=== PATIENT | female | born 1945 | race Caucasian/White ===

== ENCOUNTER 2017-06-26 00:26 | Emergency (ER) | payer OTHER, MEDICARE ==
[2017-06-26 00:38] VITALS: BP 117/69; PULSE 82; TEMP 97.8; BMI 22.8
--- NOTE | 2017-06-26 00:47 | PDOC ---
History of Present Illness - General Chief Complaint: Pain Stated Complaint: ABD PAIN WITH BM Time Seen by Provider: 06/26/17 00:42 History Source: Patient Exam Limitations: No Limitations - History of Present Illness Initial Comments: 06/26/17 00:42 Painful bowel movement one hour ago, feels fine now. Timing/Duration: 1 hour Severity: moderate Modifying Factors: worse with: cold therapy, eating, immobilization, medication , movement, rest, other Associated Symptoms: denies: denies symptoms, chest pain, cough, diaphoresis, fever/chills, headaches, loss of appetite, malaise, nausea/vomiting, rash, seizure, shortness of breath, syncope, weakness, other Aspirin Received prior to arrival: Yes: no aspirin today Past History - Past Medical History Allergies/Adverse Reactions: Allergies Allergy/AdvReac Type Severity Reaction Status Date / Time No Known Allergies Allergy Verified 06/26/17 00:27 Home Medications: Ambulatory Orders Atorvastatin Ca [Lipitor] 20 mg PO DAILY 01/12/16 Lisinopril [Prinivil] 20 mg PO DAILY 01/12/16 Lamotrigine [Lamictal] 100 mg PO DAILY 07/08/16 Levothyroxine [Synthroid -] 100 mcg PO DAILY@0700 #30 tablet 07/09/16 Sertraline HCl [Zoloft] 100 mg PO DAILY 08/09/16 Albuterol Sulfate Inhaler - [Ventolin HFA Inhaler -] 1 - 2 inh PO QID #1 inhaler 08/10/16 Budesonide/Formeterol Fumarate [SYMBICORT 160/4.5mcg -] 2 puff IH BID #1 inhaler 08/10/16 Asthma: Yes COPD: Yes Diabetes: Yes HTN: Yes Hypercholesterolemia: Yes Psychiatric Problems: Yes (anxiety) Thyroid Disease: Yes (HYPO) - Surgical History Appendectomy: Yes - Immunization History Td Vaccination: Yes TDAP Vaccination: No Immunization Up to Date: No - Suicide/Smoking/Psychosocial Hx Smoking Status: Yes Smoking History: Current some day smoker Years of Tobacco Use: 20 Have you smoked in the past 12 months: Yes Number of Cigarettes Smoked Daily: 15 Information on smoking cessation initiated: Yes 'Breaking Loose' booklet given: 08/31/14 Hx Alcohol Use: No Drug/Substance Use Hx: No Substance Use Type: None Hx Substance Use Treatment: No Review of Systems - Review of Systems Able to Perform ROS?: Yes Is the patient limited Swedish proficient: Yes Constitutional: No: Symptoms Reported HEENTM: No: Symptoms Reported Respiratory: No: Symptoms reported Cardiac (ROS): No: Symptoms Reported ABD/GI: No: Symptoms Reported : No: Symptoms Reported Musculoskeletal: No: Symptoms Reported Integumentary: No: Symptoms Reported Neurological: No: Symptoms reported Psychiatric: No: Anxiety, Depression Endocrine: No: Symptoms Reported Hematologic/Lymphatic: No: Symptoms Reported All Other Systems: Reviewed and Negative *Physical Exam - Vital Signs Last Vital Signs Temp Pulse Resp BP Pulse Ox 97.8 F 82 18 117/69 99 06/26/17 00:33 06/26/17 00:33 06/26/17 00:33 06/26/17 00:33 06/26/17 00:33 - Physical Exam Comments: 06/26/17 00:44 VSS NAD General Appearance: Yes: Nourished, Appropriately Dressed, Apparent Distress HEENT: positive: EOMI, MARIZOL, Normal ENT Inspection Neck: positive: Tender, Trachea midline, Supple Respiratory/Chest: positive: Lungs Clear, Normal Breath Sounds Cardiovascular: positive: Regular Rhythm, Regular Rate, Murmur Gastrointestinal/Abdominal: positive: Normal Bowel Sounds, Flat, Soft Rectal Exam: positive: deferred Lymphatic: negative: Adenopathy, Tenderness Musculoskeletal: positive: Normal Inspection Extremity: positive: Normal Capillary Refill, Normal Inspection Integumentary: positive: Normal Color, Dry, Warm Neurologic: positive: tripe finisher II-XII NML intact, Fully Oriented, Alert, Normal Mood/ Affect *DC/Admit/Observation/Transfer Diagnosis at time of Disposition: Abdominal pain in female - Discharge Dispostion Disposition: HOME Condition at time of disposition: Good Admit: No - Patient Instructions Printed Discharge Instructions: DI for Abdominal Pain-Adult Additional Instructions: Return to us if worse or any problems
== END 2017-06-26 00:58 | disposition home or self-care (01) ==
LOC: FER 00:26
DX: R10.9 Unspecified abdominal pain (principal); J45.909 Unspecified asthma, uncomplicated; E11.9 Type 2 diabetes mellitus without complications; I10 Essential (primary) hypertension; E78.00 Pure hypercholesterolemia, unspecified; F41.9 Anxiety disorder, unspecified; E03.9 Hypothyroidism, unspecified; F17.210 Nicotine dependence, cigarettes, uncomplicated
CPT/HCPCS: 99282-25

== ENCOUNTER 2017-10-13 17:46 | Emergency (ER) | payer OTHER, MEDICARE ==
[2017-10-13 18:37] VITALS: BMI 22.8
--- NOTE | 2017-10-13 18:46 | PDOC ---
History of Present Illness - General History Source: Patient Exam Limitations: No Limitations - History of Present Illness Initial Comments: 10/13/17 18:56 The patient is a 71 year old female with a significant past medical history of anxiety, COPD, HTN, and HLD who presents to the ED with a cough. The patient reports she developed a cough around the fall of 2016. She states her cough started off being productive of darby foggy sputum. Patient reports her cough has now progressively worsened and is productive of a yellow-colored sputum. She also reports a nasal drip to the back of her throat and worsening nasal congestion associated with present symptoms. Patient states her baseline O2 stat is in the mid 80s. She states she has oxygen at home but it noncompliant. Denies fever or chills. Denies chest pain. Denies nausea, vomiting, or diarrhea. Denies any other symptoms. <Deja Rosales - Last Filed: 10/13/17 18:56> <Rosa Isela Childress - Last Filed: 10/14/17 12:00> - General Chief Complaint: Cold Symptoms Stated Complaint: cough Time Seen by Provider: 10/13/17 18:32 Past History <Deja Rosales - Last Filed: 10/13/17 18:56> - Past Medical History Asthma: Yes COPD: Yes (sometimes uses 02 at home) Diabetes: Yes HTN: Yes Hypercholesterolemia: Yes Psychiatric Problems: Yes (anxiety) Thyroid Disease: Yes (HYPO) - Surgical History Appendectomy: Yes - Immunization History Td Vaccination: Yes TDAP Vaccination: No Immunization Up to Date: No - Suicide/Smoking/Psychosocial Hx Smoking Status: Yes Smoking History: Unknown if ever smoked Years of Tobacco Use: 20 Have you smoked in the past 12 months: Yes Number of Cigarettes Smoked Daily: 15 'Breaking Loose' booklet given: 08/31/14 Hx Alcohol Use: No Drug/Substance Use Hx: No Substance Use Type: None Hx Substance Use Treatment: No <Rosa Isela hCildress - Last Filed: 10/14/17 12:00> - Past Medical History Allergies/Adverse Reactions: Allergies Allergy/AdvReac Type Severity Reaction Status Date / Time No Known Allergies Allergy Verified 06/26/17 00:27 Home Medications: Ambulatory Orders Atorvastatin Ca [Lipitor] 20 mg PO DAILY 01/12/16 Lisinopril [Prinivil] 20 mg PO DAILY 01/12/16 Lamotrigine [Lamictal] 100 mg PO DAILY 07/08/16 Levothyroxine [Synthroid -] 100 mcg PO DAILY@0700 #30 tablet 07/09/16 Sertraline HCl [Zoloft] 100 mg PO DAILY 08/09/16 Albuterol Sulfate Inhaler - [Ventolin HFA Inhaler -] 1 - 2 inh PO QID #1 inhaler 08/10/16 Budesonide/Formeterol Fumarate [SYMBICORT 160/4.5mcg -] 2 puff IH BID #1 inhaler 08/10/16 Albuterol 2.5/Ipratropium 0.5 [Duoneb -] 1 neb IH QID #24 vial.neb. 10/13/17 Azithromycin 250 mg PO DAILY #4 tablet 10/13/17 Prednisone [Deltasone] 40 mg PO DAILY #8 tablet 10/13/17 Review of Systems - Review of Systems Able to Perform ROS?: Yes Comments:: 10/13/17 18:57 GENERAL/CONSTITUTIONAL: No fever or chills. No weakness. HEAD, EYES, EARS, NOSE AND THROAT: + nasal drip/nasal congestion. No change in vision. No ear pain or discharge. No sore throat. CARDIOVASCULAR: No chest pain. RESPIRATORY: + cough No wheezing, or hemoptysis. GASTROINTESTINAL: No nausea, vomiting, diarrhea or constipation. GENITOURINARY: No dysuria, frequency, or change in urination. MUSCULOSKELETAL: No joint or muscle swelling or pain. No neck or back pain. SKIN: No rash NEUROLOGIC: No headache, vertigo, loss of consciousness, or change in strength/ sensation. ENDOCRINE: No increased thirst. No abnormal weight change. HEMATOLOGIC/LYMPHATIC: No anemia, easy bleeding, or history of blood clots. ALLERGIC/IMMUNOLOGIC: No hives or skin allergy. All Other Systems: Reviewed and Negative <Deja Rosales - Last Filed: 10/13/17 18:56> *Physical Exam - Vital Signs Last Vital Signs Temp Pulse Resp BP Pulse Ox 98.5 F 110 H 18 120/93 93 L 10/13/17 17:46 10/13/17 17:46 10/13/17 17:46 10/13/17 17:46 10/13/17 18:46 <Deja Rosales - Last Filed: 10/13/17 18:56> - Vital Signs Last Vital Signs Temp Pulse Resp BP Pulse Ox 98.5 F 110 H 18 120/93 93 L 10/13/17 17:46 10/13/17 17:46 10/13/17 17:46 10/13/17 17:46 10/13/17 18:46 - Physical Exam Comments: GENERAL: Awake, alert, and fully oriented, in no acute distress HEAD: No signs of trauma EYES: PERRLA, EOMI, sclera anicteric, conjunctiva clear ENT: Auricles normal inspection, hearing grossly normal, nares patent, oropharynx erythematous without exudates. Moist mucosa NECK: Normal ROM. No JVD or masses. +Mild anterior cervical LAD. LUNGS: Mildly dec air entry B/L, scattered exp wheezes. Speaking full sentences. HEART: Regular rate and rhythm, normal S1 and S2, no murmurs, rubs or gallops ABDOMEN: Soft, nontender, normoactive bowel sounds. No guarding, no rebound. No masses EXTREMITIES: Normal range of motion, no edema. No clubbing or cyanosis. No cords, erythema, or tenderness NEUROLOGICAL: Cranial nerves II through XII grossly intact. Normal speech, normal gait SKIN: Warm, Dry, normal turgor, no rashes or lesions noted. <Rosa Isela Childress - Last Filed: 10/14/17 12:00> Medical Decision Making - Medical Decision Making 10/13/17 18:53 Pt placed on O2 in ED and her O2Sat increased to 93-95. She chronically has O2Sat in mid-80s, recently has been worse with her coughing. Despite this, she is speaking full sentences, comfortable on O2. Will treat with steroids, nebs, and abx for bronchitis. If CXR negative and improving, may potentially DC home. <Rosa Isela Childress - Last Filed: 10/14/17 12:00> *DC/Admit/Observation/Transfer - Attestations Scribe Attestion: 10/13/17 18:57 Documentation prepared by Deja Rosales, acting as medical art therapist for Rosa Isela Childress MD <Deja Rosales - Last Filed: 10/13/17 18:56> <Rosa Isela Childress - Last Filed: 10/14/17 12:00> Diagnosis at time of Disposition: Bronchitis COPD (chronic obstructive pulmonary disease) Qualifiers: COPD type: emphysema Emphysema type: unspecified Qualified Code(s): J43.9 - Emphysema, unspecified - Discharge Dispostion Disposition: HOME Condition at time of disposition: Stable - Prescriptions Prescriptions: Albuterol 2.5/Ipratropium 0.5 [Duoneb -] 1 neb IH QID #24 vial.neb. Azithromycin 250 mg PO DAILY #4 tablet Prednisone [Deltasone] 40 mg PO DAILY #8 tablet - Patient Instructions Additional Instructions: Take your antibiotic 1 tablet a day for the next 4 days. Take prednisone 2 tablets a day for the next 4 days. Use your oxygen as needed. You can take a nebulizer treatment as often as 4 times a day. Keep your appointment with Dr. Diaz Return to the emergency department immediately with ANY new, persistent or worsening symptoms. Continue any medications as previously prescribed by your physician. You should follow up with your primary doctor as soon as possible regarding today's emergency department visit. . Please make sure your doctor reviews the results of your emergency evaluation. Thank you for coming to the Emergency Department today for your care. It was a pleasure to see you today. Please note that your evaluation is INCOMPLETE until you follow-up with your doctor.
[2017-10-13] MEDS ORDERED: predniSONE 20 MG TABLET (UD) PO ONE (18:51)
[2017-10-13] MEDS ORDERED: AZITHROMYCIN 500 MG TABLET PO ONE (18:51)
[2017-10-13] MEDS ORDERED: AZITHROMYCIN 250 MG TABLET ONE (19:15)
[2017-10-13] MEDS ORDERED: ALBUTEROL SO4 2.5/IPRATROPIUM 0.5 INH SOL 3 ML VIAL.NEB. NEB ONE ×2 (19:15→19:23)
[2017-10-13] MEDS ORDERED: predniSONE 20 MG TABLET (UD) ONE (19:16)
[2017-10-13] MEDS: ALBUTEROL SO4 2.5/IPRATROPIUM 0.5 INH SOL 3 ML VIAL.NEB. NEB SCH ×3 (19:20→19:36)
--- NOTE | 2017-10-13 19:27 | PDOC ---
*Physical Exam - Vital Signs Last Vital Signs Temp Pulse Resp BP Pulse Ox 98.5 F 110 H 18 120/93 93 L 10/13/17 17:46 10/13/17 17:46 10/13/17 17:46 10/13/17 17:46 10/13/17 18:46 ED Treatment Course - Medications Given in the ED: ED Medications Discontinued Medications Generic Name Dose Route Start Last Admin Trade Name Freq PRN Reason Stop Dose Admin Azithromycin 500 mg 10/13/17 18:51 10/13/17 19:19 Azithromycin PO 10/13/17 18:52 500 mg ONCE ONE Administration Prednisone 60 mg 10/13/17 18:51 10/13/17 19:19 Deltasone - PO 10/13/17 18:52 60 mg ONCE ONE Administration Progress Note - Progress Note Progress Note: Care of this patient was transferred to me from Dr. Childress at 1900 hrs. Patient is a 71-year-old female who came in complaining of acute exacerbation of her COPD and shortness of breath. Patient is on home oxygen for her COPD. But does not like to use it when she got here her O2 sats were 77% and when placed on her amount of oxygen that she is supposed to be on at home her sats rapidly improved to 93%. Patient had a chest x-ray that was read by me as no acute pathology no significant change from prior chest x-ray of July 2016. It does show flattening of the diaphragms consistent with COPD Patient is receiving some steroids and nebulizer treatments will reassess and reevaluate after completion of her medications and make decision to discharge. Patient prefers to be discharged home if at all possible Reevaluation 2000 hrs. Patient is feeling finished her medication feels much better looks better and wanted to go home. Patient needs prescriptions for her steroids and her nebulizers will send prescriptions to patient's pharmacy Assessment and plan: This is a 71-year-old female who comes in complaining of COPD exacerbation patient ran out of her medications for her nebulizer and the has not been using her oxygen at home. Patient given prednisone here and dual nebs with marked improvement in her symptoms. Patient will be given prescriptions and has an appointment with a rn med surg for next week. *DC/Admit/Observation/Transfer Diagnosis at time of Disposition: Bronchitis COPD (chronic obstructive pulmonary disease) Qualifiers: COPD type: emphysema Emphysema type: unspecified Qualified Code(s): J43.9 - Emphysema, unspecified - Discharge Dispostion Disposition: HOME Condition at time of disposition: Stable Admit: No - Referrals - Patient Instructions Additional Instructions: Take your antibiotic 1 tablet a day for the next 4 days. Take prednisone 2 tablets a day for the next 4 days. Use your oxygen as needed. You can take a nebulizer treatment as often as 4 times a day. Keep your appointment with Dr. Diaz Return to the emergency department immediately with ANY new, persistent or worsening symptoms. Continue any medications as previously prescribed by your physician. You should follow up with your primary doctor as soon as possible regarding today's emergency department visit. . Please make sure your doctor reviews the results of your emergency evaluation. Thank you for coming to the Emergency Department today for your care. It was a pleasure to see you today. Please note that your evaluation is INCOMPLETE until you follow-up with your doctor. - Post Discharge Activity
[2017-10-13 20:07] VITALS: BP 144/79; PULSE 82; TEMP 98.6
== END 2017-10-13 20:14 | disposition home or self-care (01) ==
LOC: FER 17:46
PROC: 3E0F7GC Introduction of Other Therapeutic Substance into Respiratory Tract, Via Natural or Artificial Opening (ICD-10-PCS; principal; 2017-10-13)
DX: J40 Bronchitis, not specified as acute or chronic (principal); J43.9 Emphysema, unspecified; I10 Essential (primary) hypertension; E78.5 Hyperlipidemia, unspecified; E11.9 Type 2 diabetes mellitus without complications; E03.9 Hypothyroidism, unspecified; F41.9 Anxiety disorder, unspecified
CPT/HCPCS: 71046-TC-FY; 94640; 99282-25

== ENCOUNTER 2020-02-16 10:07 | Emergency (ER) | payer OTHER, MEDICARE ==
[2020-02-16 10:29] VITALS: TEMP 98.6; BMI 28.3
[2020-02-16] MEDS ORDERED: methylPREDNISolone NA SUCC 125 MG/2 ML VIAL IVPB ONE (10:42)
[2020-02-16] MEDS ORDERED: ALBUTEROL SO4 HFA INHALER IH PRN (10:43)
[2020-02-16] MEDS ORDERED: methylPREDNISolone NA SUCC 125 MG/2 ML VIAL ONE (11:11)
[2020-02-16] MEDS ORDERED: ALBUTEROL SO4 HFA INHALER IH ONE ×2 (11:11→12:47)
[2020-02-16 11:25] LABS: BASO % 0.7 % (0-2.0); EOS % 6.2 % (0-4.5); HEMATOCRIT 40.8 % (32.4-45.2); HEMOGLOBIN 13.4 GM/dl (10.7-15.3); LYMPH % 16.3 % (8-40); MCH 28.6 pg (25.7-33.7); MCHC 32.9 g/dl (32.0-36.0); MEAN PLT VOLUME 7.8 fl (7.5-11.1); MONO % 10.1 % (3.8-10.2); NEUT % 66.7 % (42.8-82.8); PLATELET COUNT 219 K/MM3 (134-434); RDW 14.2 % (11.6-15.6); WHITE BLOOD COUNT 5.8 K/mm3 (4.0-10.8)
[2020-02-16 11:31] LABS: ACTIVATED PTT 35.4 SECONDS (25.2-36.5)
[2020-02-16 11:36] LABS: ALBUMIN 4.2 g/dl (3.4-5.0); ALK PHOS 70 U/L (45-117); ANION GAP 7 MMOL/L (8-16); BILIRUBIN,TOTAL 0.6 mg/dl (0.2-1); CALCIUM 8.7 mg/dl (8.5-10); CHLORIDE 97 mmol/L (98-107); CO2 35 mmol/L (21-32); CREATININE 0.7 mg/dl (0.55-1.3); GLUCOSE,RANDOM 99 mg/dl (74-106); LDH 198 U/L (84-246); POTASSIUM 4.5 mmol/L (3.5-5.1); PROTHROMBIN TIME (PATIENT) 11.2 SEC (10.2-13.0); SGOT/AST 35 U/L (15-37); SGPT/ALT 26 U/L (13-61); SODIUM 139 mmol/L (136-145); TOT PROT 6.8 g/dl (6.4-8.2)
[2020-02-16 11:40] LABS: BILIRUBIN,DIRECT < 0.2 mg/dL (0.0-0.2)
[2020-02-16] MEDS ORDERED: ALBUTEROL SO4 2.5/IPRATROPIUM 0.5 INH SOL 3 ML VIAL.NEB. NEB ONE ×4 (12:47→13:39)
[2020-02-16 16:22] VITALS: BP 127/86; PULSE 86
[2020-02-16 17:00] LABS: EPITHELIAL CELLS FEW /hpf
== END 2020-02-16 17:25 | disposition home or self-care (01) ==
LOC: FER 10:07
PROC: 3E033GC Introduction of Other Therapeutic Substance into Peripheral Vein, Percutaneous Approach (ICD-10-PCS; principal; 2020-02-16)
PROC: 3E0F7GC Introduction of Other Therapeutic Substance into Respiratory Tract, Via Natural or Artificial Opening (ICD-10-PCS; principal; 2020-02-16)
DX: J44.1 Chronic obstructive pulmonary disease with (acute) exacerbation (principal)
CPT/HCPCS: 36415; 71045-TC-FY; 80053; 81003; 81015; 82248; 82550; 82553; 82728; 83605; 83615; 84484; 85025; 85379; 85610; 85730; 86140; 87040; 87086; 93005; 94640; 96374; 99285-25; U0003

== ENCOUNTER 2020-04-20 05:29 | Inpatient (IN) | payer OTHER, MEDICARE ==
[2020-04-20] MEDS ORDERED: methylPREDNISolone NA SUCC 125 MG/2 ML VIAL IVPUSH ONE (05:58)
[2020-04-20] MEDS ORDERED: ALBUTEROL SO4 2.5/IPRATROPIUM 0.5 INH SOL 3 ML VIAL.NEB. NEB ONE ×5 (05:58→08:36)
--- NOTE | 2020-04-20 05:58 | PDOC ---
History of Present Illness - General Chief Complaint: Shortness of Breath Stated Complaint: SOB History Source: Patient Exam Limitations: Dementia - History of Present Illness Initial Comments: 04/20/20 06:35 74 y female, COPD, home O2, presents with increasing dyspnea x several days, worse last night. O2 sat at home off O2 in the 60s Is this a multiple visit Asthma Patient?: No Timing/Duration: 1 week Severity: moderate Modifying Factors: worse with: medication Associated Symptoms: reports: shortness of breath, weakness. denies: chest pain, cough, fever/chills Aspirin Received prior to arrival: Yes: no aspirin today Past History - Medical History Allergies/Adverse Reactions: Allergies Allergy/AdvReac Type Severity Reaction Status Date / Time No Known Allergies Allergy Verified 04/20/20 05:30 Home Medications: Ambulatory Orders Atorvastatin Ca [Lipitor] 40 mg PO DAILY 01/12/16 Lisinopril [Prinivil] 40 mg PO DAILY 01/12/16 Lamotrigine [Lamictal] 100 mg PO BID 07/08/16 Sertraline HCl [Zoloft] 200 mg PO DAILY 08/09/16 Albuterol Sulfate Inhaler - [Ventolin HFA Inhaler -] 1 - 2 inh PO QID #1 inhaler 02/16/20 Gabapentin [Neurontin] 100 mg PO BID 04/20/20 Levothyroxine [Synthroid -] 125 mcg PO DAILY@0700 04/20/20 Memantine HCl/Donepezil HCl [Namzaric 28 mg-10 mg Capsule] 1 each PO DAILY 04/20/20 Mirtazapine 15 mg PO HS 04/20/20 Anemia: No Asthma: Yes Cancer: Yes (LEFT LUNG CA 2017) Cardiac Disorders: No CVA: No COPD: Yes (uses 02 at home 2L) CHF: No DVT: No Dementia: Yes Diabetes: Yes Dialysis: No GI Disorders: No Disorders: No HTN: Yes Hypercholesterolemia: Yes Kidney Stones: No Liver Disease: No Psychiatric Problems: Yes (anxiety) Seizures: No Thyroid Disease: Yes (HYPO) Lung CA: Yes - Surgical History Abdominal Surgery: Yes Appendectomy: Yes Cardiac Surgery: No Cholecystectomy: No Gastric Stapling: No GI Surgery: No Lung Surgery: Yes (LEFT PARTIAL LOBECTOMY) Neurologic Surgery: No - Reproductive History Is Patient Now?: No - Immunization History Td Vaccination: Yes TDAP Vaccination: No Immunization Up to Date: No - Psycho-Social/Smoking History Smoking Status: Yes Smoking History: Unknown if ever smoked Years of Tobacco Use: 20 Have you smoked in the past 12 months: Yes Number of Cigarettes Smoked Daily: 15 If you are a former smoker, when did you quit?: 2018 'Breaking Loose' booklet given: 08/31/14 - Substance Abuse Hx (Audit-C & DAST Scrn) How often the patient has a drink containing alcohol: Never Score: In Men: 4 or > Positive; In Women: 3 or > Positive: 0 Screen Result (Pos requires Nsg. Audit-10AR): Negative In the last yr the pt used illegal drug/Rx for NonMed reason: No Score: Yes response is considered Positive: 0 Screen Result (Positive result requires Nsg. DAST-10): Negative Review of Systems - Review of Systems All Other Systems: Reviewed and Negative *Physical Exam - Vital Signs Last Vital Signs Temp Pulse Resp BP Pulse Ox 98.4 F 105 H 30 H 157/68 85 L 04/20/20 05:30 04/20/20 05:30 04/20/20 05:30 04/20/20 05:30 04/20/20 05:42 - Physical Exam General Appearance: Yes: Nourished, Appropriately Dressed HEENT: positive: Normal Voice. negative: Scleral Icterus (R), Scleral Icterus (L) Neck: negative: Lymphadenopathy (R), Lymphadenopathy (L) Respiratory/Chest: positive: Wheezing. negative: Respiratory Distress Cardiovascular: positive: Regular Rhythm Gastrointestinal/Abdominal: negative: Tender Lymphatic: negative: Adenopathy Musculoskeletal: positive: Normal Inspection Extremity: negative: Pedal Edema Integumentary: positive: Normal Color Neurologic: positive: Motor Strength 5/5 Heart Score/ECG Review - ECG Impressions Comment:: 04/20/20 06:38 sinus at 106, nl axis, nl intervals, no acute ischemic findings Medical Decision Making - Medical Decision Making 04/20/20 06:38 copd/ asthma with acute exacerbation cxr, labs ordered EKG non-contributory treat asthma exacerbation with duonebs, steroids, and O2 will probably need admission Discharge - Discharge Information Problems reviewed: Yes Clinical Impression/Diagnosis: COPD exacerbation - Follow up/Referral - Patient Discharge Instructions - Post Discharge Activity
[2020-04-20] MEDS ORDERED: methylPREDNISolone NA SUCC 125 MG/2 ML VIAL ONE (06:01)
--- NOTE | 2020-04-20 08:11 | PDOC ---
*Physical Exam - Vital Signs Last Vital Signs Temp Pulse Resp BP Pulse Ox 98.4 F 96 H 24 H 113/86 95 04/20/20 05:30 04/20/20 06:39 04/20/20 06:39 04/20/20 06:39 04/20/20 06:39 - Physical Exam 04/20/20 08:10 awake but sleepy, lungs decreased breath sound bilat, poor air entry. mild increased effort. faint end exp wheeze. heart reg tachycardia. no mrg abd soft nt ext wwp. no edema. no calf tenderness. <Joslyn Holcomb - Last Filed: 04/20/20 10:40> - Vital Signs Last Vital Signs Temp Pulse Resp BP Pulse Ox 98.2 F 80 20 122/77 100 04/20/20 20:44 04/20/20 20:44 04/20/20 20:44 04/20/20 20:44 04/20/20 20:44 <Monique Xiong - Last Filed: 04/20/20 21:12> ED Treatment Course - LABORATORY CBC & Chemistry Diagram: 04/20/20 06:01 04/20/20 06:01 - Medications Given in the ED: ED Medications Discontinued Medications Generic Name Dose Route Start Last Admin Trade Name Freq PRN Reason Stop Dose Admin Albuterol/Ipratropium 1 amp 04/20/20 05:58 04/20/20 06:22 Duoneb - NEB 04/20/20 05:59 1 amp ONCE ONE Administration Methylprednisolone Sodium Succinate 125 mg 04/20/20 05:58 04/20/20 06:22 Solu-Medrol - IVPUSH 04/20/20 05:59 125 mg ONCE ONE Administration <Joslyn Holcomb - Last Filed: 04/20/20 10:40> - LABORATORY CBC & Chemistry Diagram: 04/20/20 06:01 04/20/20 06:01 - ADDITIONAL ORDERS Additional order review: Laboratory Results 04/20/20 04/20/20 04/20/20 13:00 10:27 06:01 Anticoagulation Therapy No Result Required. No Result Required. Puncture Site No Result Required. No Result Required. Patient Temperature No Result Required. No Result Required. ABG pH 7.298 L 7.284 L ABG pCO2 65.80 H 70.10 H* ABG pO2 134.4 H 197.8 H ABG HCO3 31.5 H 32.5 H ABG O2 Sat (Measured) 98.3 H 99.2 H ABG O2 Content No Result Required. No Result Required. ABG Base Excess 2.6 H 3.6 H Rasheed Test No Result Required. No Result Required. VBG pH POC VBG pCO2 POC VBG pO2 VBG HCO3 VBG O2 Sat (Cherelle) VBG Base Excess Patient On Oxygen No Result Required. No Result Required. O2 Delivery Device No Result Required. No Result Required. Oxygen Flow Rate No Result Required. No Result Required. Vent Mode No Result Required. No Result Required. Vent Rate No Result Required. No Result Required. Mechanical Rate No Result Required. No Result Required. PEEP No Result Required. No Result Required. Pressure Support Vent No Result Required. No Result Required. Sodium 138 Potassium 4.5 Chloride 96 L Carbon Dioxide 32 Anion Gap 10 BUN 27.0 H Creatinine 0.7 Est GFR (CKD-EPI)AfAm 100.32 Est GFR (CKD-EPI)NonAf 86.56 Random Glucose 123 H Calcium 8.9 Total Bilirubin 0.4 AST 38 H ALT 26 Alkaline Phosphatase 93 Troponin I Total Protein 6.8 Albumin 4.1 04/20/20 04/20/20 06:01 06:00 Anticoagulation Therapy Puncture Site Patient Temperature ABG pH ABG pCO2 ABG pO2 ABG HCO3 ABG O2 Sat (Measured) ABG O2 Content ABG Base Excess Rasheed Test VBG pH 7.231 L POC VBG pCO2 85.2 H* POC VBG pO2 86.6 H VBG HCO3 35.0 H VBG O2 Sat (Cherelle) 94.3 H VBG Base Excess 4.5 H Patient On Oxygen O2 Delivery Device Oxygen Flow Rate Vent Mode Vent Rate Mechanical Rate PEEP Pressure Support Vent Sodium Potassium Chloride Carbon Dioxide Anion Gap BUN Creatinine Est GFR (CKD-EPI)AfAm Est GFR (CKD-EPI)NonAf Random Glucose Calcium Total Bilirubin AST ALT Alkaline Phosphatase Troponin I < 0.03 Total Protein Albumin 04/20/20 06:01 RBC 4.33 MCV 90.7 MCHC 32.8 RDW 15.1 MPV 8.8 Neutrophils % 66.2 Lymphocytes % 16.2 Monocytes % 12.6 H Eosinophils % 4.4 Basophils % 0.6 - Medications Given in the ED: ED Medications Discontinued Medications Generic Name Dose Route Start Last Admin Trade Name Freq PRN Reason Stop Dose Admin Albuterol/Ipratropium 1 amp 04/20/20 05:58 04/20/20 06:22 Duoneb - NEB 04/20/20 05:59 1 amp ONCE ONE Administration Albuterol/Ipratropium 1 amp 04/20/20 08:27 04/20/20 08:32 Duoneb - NEB 04/20/20 08:28 1 amp ONCE ONE Administration Methylprednisolone Sodium Succinate 125 mg 04/20/20 05:58 04/20/20 06:22 Solu-Medrol - IVPUSH 04/20/20 05:59 125 mg ONCE ONE Administration Sodium Chloride 1,000 ml 04/20/20 13:34 04/20/20 13:35 Normal Saline - IV 04/20/20 13:35 1,000 ml ONCE ONE Administration <Monique Xiong - Last Filed: 04/20/20 21:12> Medical Decision Making - Medical Decision Making 04/20/20 08:07 74-year-old female history of hypertension hyperlipidemia hypothyroid and COPD requiring home O2 here with worsening shortness of breath and cough for few days. Patient has been complaining of dyspnea on exertion when EMS arrived patient was noted to be 60s O2 sat off of oxygen. She does wear 2 L nasal cannula at home patient has a home health aide she does see a traffic superintendent at [facility] and her primary care doctor is Dr. Benjamin at [facility] prior to my arrival patient was seen by the overnight staff was given nebs steroids evaluate the chest x-ray and basic labs. x-ray was negative for acute pathology patient did show some improvement on my initial evaluation was sleeping with an O2 sat of 100% shortly thereafter she did become more dyspneic with decreased breath sounds will be placed on a second nebulizer oxygen was increased to 3 L is now satting 95%. Will attempt to keep sats above 92% will admit the patient to hospitalist 04/20/20 08:12 04/20/20 10:40 pt with increased co2 on blood gas, venous. mild resp acidosis. placed on BIPAP. abg sent and pending. evaluated by Wade Mariscal, will admit to [facility]. <Joslyn Holcomb - Last Filed: 04/20/20 10:40> Discharge - Discharge Information Problems reviewed: Yes - Admission Yes <Joslyn Holcomb - Last Filed: 04/20/20 10:40> - Admission Yes <Monique iXong - Last Filed: 04/20/20 21:12> - Discharge Information Clinical Impression/Diagnosis: COPD exacerbation
[2020-04-20 09:09] LABS: BASO % 0.6 % (0-2.0); EOS % 4.4 % (0-4.5); HEMATOCRIT 39.3 % (32.4-45.2); HEMOGLOBIN 12.9 GM/dl (10.7-15.3); LYMPH % 16.2 % (8-40); MCH 29.7 pg (25.7-33.7); MCHC 32.8 g/dl (32.0-36.0); MEAN CELL VOLUME 90.7 fl (80-96); MEAN PLT VOLUME 8.8 fl (7.5-11.1); MONO % 12.6 % (3.8-10.2); NEUT % 66.2 % (42.8-82.8); PLATELET COUNT 202 K/MM3 (134-434); RBC 4.33 M/mm3 (3.60-5.2); RDW 15.1 % (11.6-15.6); WHITE BLOOD COUNT 6.7 K/mm3 (4.0-10.8)
[2020-04-20 09:10] LABS: ALBUMIN 4.1 g/dl (3.4-5.0); BILIRUBIN,TOTAL 0.4 mg/dl (0.2-1); CALCIUM 8.9 mg/dl (8.5-10); CREATININE 0.7 mg/dl (0.55-1.3); POTASSIUM 4.5 mmol/L (3.5-5.1); TOT PROT 6.8 g/dl (6.4-8.2)
--- NOTE | 2020-04-20 09:15 | HP ---
CHIEF COMPLAINT: Dyspnea PCP: HISTORY OF PRESENT ILLNESS: This is a 74 year-old female with a history of HTN, HLD, COPD with multiple admissions, hypothyroidism, and anxiety who presented to the ED today with worsening SOB, nonproductive cough, and wheezing. The patient is lethargic on my evaluation; only opening eyes with vigorous physical stimulation and only providing one-word answers to simple questions. ER course was notable for: (1) Venous pH 7.2, PCO2 85 (2) CXR: no acute pathology (3) Treated with methylprednisolone 125mg IVP, DuoNeb x 2 Recent Travel: No PAST MEDICAL HISTORY: Hypertension Hyperlipidemia COPD Hypothyroidism Anxiety PAST SURGICAL HISTORY: Back surgery for scoliosis Appendectomy Tonsillectomy Social History: Smoking: Quit "a few months ago" Alcohol: None Drugs: None Allergies NKDA HOME MEDICATIONS: Home Medications Medication Instructions Recorded Atorvastatin Ca [Lipitor] 40 mg PO DAILY 01/12/16 Lisinopril [Prinivil] 40 mg PO DAILY 01/12/16 Lamotrigine [Lamictal] 100 mg PO BID 07/08/16 Sertraline HCl [Zoloft] 200 mg PO DAILY 08/09/16 Albuterol Sulfate Inhaler - 1 - 2 inh PO QID #1 inhaler 02/16/20 [Ventolin HFA Inhaler -] Gabapentin [Neurontin] 100 mg PO BID 04/20/20 Levothyroxine [Synthroid -] 125 mcg PO DAILY@0700 04/20/20 Memantine HCl/Donepezil HCl 1 each PO DAILY 04/20/20 [Namzaric 28 mg-10 mg Capsule] Mirtazapine 15 mg PO HS 04/20/20 REVIEW OF SYSTEMS Limited by patient condition. Denies fevers, chest pain. PHYSICAL EXAMINATION Vital Signs - 24 hr 04/20/20 04/20/20 04/20/20 05:30 05:42 05:54 Temperature 98.4 F Pulse Rate 105 H 107 H Pulse Rate [ Apical] Respiratory 30 H Rate Blood Pressure 157/68 Blood Pressure [Left Arm] O2 Sat by Pulse 85 L 85 L 94 L Oximetry (%) 04/20/20 04/20/20 06:39 08:00 Temperature Pulse Rate Pulse Rate [ 96 H 110 H Apical] Respiratory 24 H 20 Rate Blood Pressure Blood Pressure 113/86 144/69 [Left Arm] O2 Sat by Pulse 95 92 L Oximetry (%) GENERAL: Lethargic, responsive to vigorous stimulation, oriented x 3 when aroused. HEAD: Normal with no signs of trauma. EYES: Pupils equal, round and reactive to light, extraocular movements intact, sclera anicteric, conjunctiva clear. No lid lag. EARS, NOSE, THROAT: Ears normal, nares patent, oropharynx clear without exudates. Moist mucous membranes. NECK: Normal range of motion, supple without lymphadenopathy, JVD, or masses. LUNGS: Labored breathing with accessory muscle use. HEART: Regular rate and rhythm, normal S1 and S2 without murmur, rub or gallop. ABDOMEN: Soft, nontender, not distended, normoactive bowel sounds, no guarding, no rebound, no masses. No hepatomegaly or splenomegaly. MUSCULOSKELETAL: Normal range of motion at all joints. No bony deformities or tenderness. No CVA tenderness. UPPER EXTREMITIES: 2+ pulses, warm, well-perfused. No cyanosis. No clubbing. No peripheral edema. LOWER EXTREMITIES: 2+ pulses, warm, well-perfused. No calf tenderness. No peripheral edema. NEUROLOGICAL: Cranial nerves II-XII intact. Normal speech. Normal gait. PSYCHIATRIC: Cooperative. Good eye contact. Appropriate mood and affect. SKIN: Warm, dry, normal turgor, no rashes or lesions noted, normal capillary refill. Laboratory Results - last 24 hr 04/20/20 04/20/20 06:01 06:01 WBC 6.7 RBC 4.33 Hgb 12.9 Hct 39.3 MCV 90.7 MCH 29.7 MCHC 32.8 RDW 15.1 Plt Count 202 MPV 8.8 Absolute Neuts (auto) 4.5 Neutrophils % 66.2 Lymphocytes % 16.2 Monocytes % 12.6 H Eosinophils % 4.4 Basophils % 0.6 Sodium 138 Potassium 4.5 Chloride 96 L Carbon Dioxide 32 Anion Gap 10 BUN 27.0 H Creatinine 0.7 Est GFR (CKD-EPI)AfAm 100.32 Est GFR (CKD-EPI)NonAf 86.56 Random Glucose 123 H Calcium 8.9 Total Bilirubin 0.4 AST 38 H ALT 26 Alkaline Phosphatase 93 Total Protein 6.8 Albumin 4.1 ASSESSMENT/PLAN: 74-year-old female with COPD exacerbation. Family Medical History Family History: As Documented Problem List - Problem (1) COPD exacerbation Assessment/Plan: -Start NIPPV now given mental status -Pre- NIPPV ABG sent -SoluMedrol 60mg IVP bid -DuoNeb q6h while awake -Azithromycin 500mg PO daily (change to IV if mental status does not improve) -Pulm consult requested -May need transfer to [facility] (pending ABG, reassessment of mental status on NIPPV) ABG on 4L NC: pH 7.2, PCO2 70, PaO2 198 Code(s): J44.1 - CHRONIC OBSTRUCTIVE PULMONARY DISEASE W (ACUTE) EXACERBATION (2) Acute hypercapnic respiratory failure Assessment/Plan: -As above Code(s): J96.02 - ACUTE RESPIRATORY FAILURE WITH HYPERCAPNIA (3) Anxiety Assessment/Plan: -Continue home lamictal, sertraline, gabapentin when more alert Code(s): F41.9 - ANXIETY DISORDER, UNSPECIFIED (4) Hypothyroidism Assessment/Plan: -Continue home levothyroxine Code(s): E03.9 - HYPOTHYROIDISM, UNSPECIFIED (5) HTN (hypertension) Assessment/Plan: -At goal -Continue home lisinopril Code(s): I10 - ESSENTIAL (PRIMARY) HYPERTENSION (6) HLD (hyperlipidemia) Assessment/Plan: -Continue home atorvastatin Code(s): E78.5 - HYPERLIPIDEMIA, UNSPECIFIED (7) DVT prophylaxis Assessment/Plan: -Moderate risk -Lovenox 40mg sq daily Patient re-evaluated and is still sleepy/lethargic, now gives slightly better verbal responses when aroused. WOB slightly improved. Second ABG sent on NIPPV 10/5 40%. pH and PaCO2 remain relatively unchanged at 7.29 and 65. In addition, patient became hypotensive in ED to 80s systolic, which improved with fluid resuscitation. After discussion with ED attending, will transfer to [facility] for higher level of monitoring. Code(s): Z29.9 - ENCOUNTER FOR PROPHYLACTIC MEASURES, UNSPECIFIED Visit type - Medication Review Med list reviewed for High Risk Meds patients 65 and older: Yes - Emergency Visit Emergency Visit: Yes Care time: The patient presented to the Emergency Department on the above date and was hospitalized for further evaluation of their emergent condition. - New Patient This patient is new to me today: Yes Date on this admission: 04/20/20 - Critical Care Critical Care patient: Yes Total Critical Care Time (in minutes): 30 Critical Care Statement: The care of this patient involved high complexity decision making to prevent further life threatening deterioration of the patient's condition and/or to evaluate & treat vital organ system(s) failure or risk of failure.
[2020-04-20] MEDS ORDERED: ACETAMINOPHEN 325 MG TABLET (FP) PO PRN (09:16)
[2020-04-20 09:20] LABS: VENOUS BASE EXCESS 4.5 mmol/L (-2-2); VENOUS O2 SATURATION 94.3 % (70-80); VENOUS PH 7.231 (7.310-7.410)
[2020-04-20 09:25] LABS: VENOUS PCO2 85.2 mmHg (38-52)
[2020-04-20] MEDS ORDERED: AZITHROMYCIN 250 MG TABLET PO SCH (10:00)
[2020-04-20] MEDS ORDERED: PATIENT'S OWN MEDICATION (NON-FORMULARY) (Memantine Hcl/Donepezil Hcl [Namzaric 28 Mg-10 M PO SCH (10:00)
--- NOTE | 2020-04-20 10:28 | EKG ---
Test Reason : Blood Pressure : / mmHG Vent. Rate : 100 BPM Atrial Rate : 100 BPM P-R Int : 192 ms QRS Dur : 090 ms QT Int : 338 ms P-R-T Axes : 079 081 072 degrees QTc Int : 436 ms SINUS RHYTHM WITH PREMATURE ATRIAL COMPLEXES RIGHT ATRIAL ENLARGEMENT BORDERLINE ECG WHEN COMPARED WITH ECG OF 16-FEB-2020 10:21, NO SIGNIFICANT CHANGE WAS FOUND Confirmed by MD Steven, Agusto ([id number]) on 04/20/2020 10:27:51 AM Referred By: JUAN SIEGEL Confirmed By:Agusto Harris MD
[2020-04-20 11:14] LABS: ARTERIAL BLD GAS O2 SATURATION 99.2 mmHg (95-98); ARTERIAL BLOOD GAS BASE EXCESS 3.6 mmol/L (-2-2); ARTERIAL BLOOD GAS PO2 197.8 mmHg (80-100); ARTERIAL BLOOD GAS pH 7.284 (7.350-7.450)
[2020-04-20] MEDS ORDERED: SODIUM CHLORIDE 0.9% 1000 ML INFUS.BAG IV ONE (13:34)
[2020-04-20] MEDS: ALBUTEROL SO4 2.5/IPRATROPIUM 0.5 INH SOL 3 ML VIAL.NEB. NEB SCH ×2 (13:58→23:00)
[2020-04-20 14:22] LABS: ARTERIAL BLD GAS O2 SATURATION 98.3 mmHg (95-98); ARTERIAL BLOOD GAS BASE EXCESS 2.6 mmol/L (-2-2); ARTERIAL BLOOD GAS PO2 134.4 mmHg (80-100); ARTERIAL BLOOD GAS pH 7.298 (7.350-7.450)
[2020-04-20] MEDS ORDERED: AZITHROMYCIN 500 MG VIAL IVPB ONE (15:56)
[2020-04-20] MEDS: AZITHROMYCIN IVPB 500 MG/250 ML BAG IVPB SCH (16:04)
[2020-04-20] MEDS ORDERED: MIRTAZAPINE 15 MG TABLET (FP) PO SCH (22:00)
[2020-04-20 22:27] VITALS: BMI 28.9
[2020-04-20] MEDS: GABAPENTIN 100 MG CAPSULE PO SCH (22:59)
[2020-04-20] MEDS: lamoTRIgine 100 MG TABLET PO SCH (22:59)
[2020-04-20] MEDS: MEMANTINE HCL 10 MG TABLET (FP) PO SCH (23:00)
[2020-04-20] MEDS: ATORVASTATIN CA 40 MG TABLET (FP) PO SCH (23:00)
[2020-04-21] MEDS: LEVOTHYROXINE NA 125 MCG TABLET (FP) PO SCH (07:11)
[2020-04-21] MEDS: lamoTRIgine 100 MG TABLET PO SCH ×3 (08:07→21:30)
[2020-04-21] MEDS: ENOXAPARIN NA (PORCINE) 40 MG/0.4 ML DISP.SYRIN SQ SCH ×2 (08:07→09:36)
[2020-04-21] MEDS: DONEPEZIL HCL 10 MG TABLET (FP) PO SCH ×2 (08:07→09:37)
[2020-04-21] MEDS: SERTRALINE HCL 50 MG TABLET (FP) PO SCH ×2 (08:08→09:33)
[2020-04-21] MEDS: LISINOPRIL 20 MG TABLET (FP) PO SCH ×2 (08:08→09:37)
[2020-04-21] MEDS: ALBUTEROL SO4 2.5/IPRATROPIUM 0.5 INH SOL 3 ML VIAL.NEB. NEB SCH ×5 (08:08→19:39)
[2020-04-21] MEDS: GABAPENTIN 100 MG CAPSULE PO SCH ×3 (08:08→21:30)
[2020-04-21] MEDS: methylPREDNISolone NA SUCC 40 MG/1 ML VIAL IVPUSH SCH ×2 (08:29→19:31)
[2020-04-21] MEDS: AZITHROMYCIN IVPB 500 MG/250 ML BAG IVPB SCH (09:37)
[2020-04-21] MEDS: MEMANTINE HCL 10 MG TABLET (FP) PO SCH ×2 (09:37→21:30)
[2020-04-21 10:21] LABS: CALCIUM 8.3 mg/dl (8.5-10); CREATININE 0.6 mg/dl (0.55-1.3); POTASSIUM 3.9 mmol/L (3.5-5.1)
--- NOTE | 2020-04-21 10:25 | PN ---
Progress Note (short form) - Note Progress Note: PULMONARY CONSULTATION DICTATED 04/21/20 IMP ACUTE ON CHRONIC HYPOXEMIC/HYPERCAPNEIC RESPIRATORY FAILURE COPD O2 DEPENDENT WITH ACUTE EXACERBATION HTN HLD HYPOTHYROID PLAN SUPPLEMENTAL O2 NIPPV NEEDED INHALED BRONCHODILATORS IV STEROIDS ABX F/U ABGS CHEST CT Problem List - Problems (1) COPD exacerbation Code(s): J44.1 - CHRONIC OBSTRUCTIVE PULMONARY DISEASE W (ACUTE) EXACERBATION (2) Acute on chronic respiratory failure with hypoxia Code(s): J96.21 - ACUTE AND CHRONIC RESPIRATORY FAILURE WITH HYPOXIA (3) Hypothyroidism Code(s): E03.9 - HYPOTHYROIDISM, UNSPECIFIED (4) HTN (hypertension) Code(s): I10 - ESSENTIAL (PRIMARY) HYPERTENSION (5) HLD (hyperlipidemia) Code(s): E78.5 - HYPERLIPIDEMIA, UNSPECIFIED (6) Acute on chronic respiratory failure with hypoxia and hypercapnia Code(s): J96.21 - ACUTE AND CHRONIC RESPIRATORY FAILURE WITH HYPOXIA; J96.22 - ACUTE AND CHRONIC RESPIRATORY FAILURE WITH HYPERCAPNIA
[2020-04-21 11:06] LABS: ARTERIAL BLD GAS O2 SATURATION 87.2 mmHg (95-98); ARTERIAL BLOOD GAS BASE EXCESS 6.8 mmol/L (-2-2); ARTERIAL BLOOD GAS PO2 57.7 mmHg (80-100); ARTERIAL BLOOD GAS pH 7.332 (7.350-7.450)
[2020-04-21 11:18] LABS: ALLENS TEST POSITIVE
--- NOTE | 2020-04-21 11:42 | PN ---
Progress Note, Physician Chief Complaint: Dx: COPD exacerbation History of Present Illness: 24HR EVENTS -refused BIPAP overnight, used NRB - routine blood gas this morning -7.332/67.40/57.7/35/87% 74 year-old female with a history of HTN, HLD, COPD with multiple admissions, hypothyroidism, and anxiety who presented to the ED today with worsening SOB, nonproductive cough, and wheezing.O2 sat at home off O2 in the 60s. In ED patient lethargic. - Current Medication List Current Medications: Active Medications Acetaminophen (Tylenol -) 650 mg PO Q6H PRN PRN Reason: pain or fever Last Admin: 04/21/20 01:53 Dose: 650 mg Documented by: Albuterol Sulfate (Ventolin 0.083% Nebulizer Soln -) 1 amp NEB Q4H PRN PRN Reason: SHORT OF BREATH/WHEEZING Albuterol/Ipratropium (Duoneb -) 1 amp NEB RQID [facility] Last Admin: 04/21/20 08:27 Dose: 1 amp Documented by: Atorvastatin Calcium (Lipitor -) 40 mg PO HS [facility] Last Admin: 04/20/20 23:00 Dose: 40 mg Documented by: Donepezil HCl (Aricept -) 10 mg PO DAILY [facility] Last Admin: 04/21/20 09:37 Dose: 10 mg Documented by: Enoxaparin Sodium (Lovenox -) 40 mg SQ DAILY [facility] Last Admin: 04/21/20 09:36 Dose: 40 mg Documented by: Gabapentin (Neurontin -) 100 mg PO BID [facility] Last Admin: 04/21/20 09:36 Dose: 100 mg Documented by: Azithromycin (Zithromax 500mg Ivpb (Pre-Docked)) 500 mg in 250 mls @ 250 mls/hr IVPB DAILY [facility] Last Admin: 04/21/20 09:37 Dose: 250 mls/hr Documented by: Lamotrigine (Lamictal -) 100 mg PO BID [facility] Last Admin: 04/21/20 09:37 Dose: 100 mg Documented by: Levothyroxine Sodium (Synthroid -) 125 mcg PO DAILY@0700 [facility] Last Admin: 04/21/20 07:11 Dose: 125 mcg Documented by: Lisinopril (Prinivil) 40 mg PO DAILY [facility] Last Admin: 04/21/20 09:37 Dose: 40 mg Documented by: Memantine (Namenda -) 10 mg PO BID [facility] Last Admin: 04/21/20 09:37 Dose: 10 mg Documented by: Methylprednisolone Sodium Succinate (Solu-Medrol -) 60 mg IVPUSH Q12H [facility] Last Admin: 04/21/20 08:29 Dose: 60 mg Documented by: Mirtazapine (Remeron -) 15 mg PO HS [facility] Last Admin: 04/20/20 23:00 Dose: 15 mg Documented by: Sertraline HCl (Zoloft -) 200 mg PO DAILY [facility] Last Admin: 04/21/20 09:33 Dose: 200 mg Documented by: - Objective Vital Signs: Vital Signs Temperature 98.8 F 04/21/20 08:47 Pulse Rate 83 04/21/20 08:47 Respiratory Rate 20 04/21/20 08:47 Blood Pressure 148/80 04/21/20 08:47 O2 Sat by Pulse Oximetry (%) 93 L 04/21/20 09:33 Constitutional: Yes: No Distress, Calm Eyes: Yes: Conjunctiva Clear, PERRL HENT: Yes: Other (right orbital ecchymosis, right upper and lower lip swollen) Neck: Yes: Supple, Trachea Midline Cardiovascular: Yes: Regular Rate and Rhythm Respiratory: Yes: CTA Bilaterally, Rhonchi Gastrointestinal: Yes: Soft ...Rectal Exam: Yes: Deferred Musculoskeletal: Yes: Muscle Weakness Extremities: Yes: Other (well healed incisions from knee replacement) Edema: Yes (face (right side)) Peripheral Pulses WNL: No Peripheral Pulses: Left Radial: 2+, Right Radial: 2+ Integumentary: Yes: Venous Stasis Changes (b/l LEs) Neurological: Yes: Alert, Lethargy ...Motor Strength: WNL Psychiatric: Yes: Alert, Oriented Labs: CBC, BMP 04/20/20 06:01 04/21/20 09:34 - ....Imaging Cat Scan: Report Reviewed (Chest CT 04/21/2020 pending) Problem List - Problems (1) COPD exacerbation Assessment/Plan: c/w solumedrol and azithromycin CT chest -pending BIPAP as needed Pulm following, recs appreciated duone Code(s): J44.1 - CHRONIC OBSTRUCTIVE PULMONARY DISEASE W (ACUTE) EXACERBATION (2) DVT prophylaxis Assessment/Plan: Lovenox daily OOB to chair daily Code(s): Z29.9 - ENCOUNTER FOR PROPHYLACTIC MEASURES, UNSPECIFIED (3) Anxiety Assessment/Plan: continue lamictal and zoloft hold remeron due to effect of somnolence Code(s): F41.9 - ANXIETY DISORDER, UNSPECIFIED (4) Hypothyroidism Assessment/Plan: cont synthroid 125mcg daily Code(s): E03.9 - HYPOTHYROIDISM, UNSPECIFIED (5) HTN (hypertension) Assessment/Plan: lisinopril 40mg daily cardiac diet Code(s): I10 - ESSENTIAL (PRIMARY) HYPERTENSION (6) HLD (hyperlipidemia) Assessment/Plan: c/w statin therapy Code(s): E78.5 - HYPERLIPIDEMIA, UNSPECIFIED (7) Dementia Assessment/Plan: continue aricept and namenda Code(s): F03.90 - UNSPECIFIED DEMENTIA WITHOUT BEHAVIORAL DISTURBANCE Impression/Plan Impression/Plan: DISPO: requires inpatient care Code status: full Visit type - Emergency Visit Emergency Visit: Yes ED Registration Date: 04/20/20 Care time: The patient presented to the Emergency Department on the above date and was hospitalized for further evaluation of their emergent condition. - New Patient This patient is new to me today: Yes Date on this admission: 04/21/20 - Critical Care Critical Care patient: No - Discharge Referral Referred to [facility] Med [facility] No - Medication Review Med list reviewed for High Risk Meds patients 65 and older: Yes
--- NOTE | 2020-04-21 17:37 | CONS ---
DATE OF CONSULTATION: 04/21/2020 PULMONARY CONSULTATION REFERRING PHYSICIAN: Khalida Mariscal NP. HISTORY OF PRESENT ILLNESS: The patient is a 74-year-old white female with past medical history of chronic obstructive pulmonary disease, is O2 dependent, plus hypothyroidism, anxiety, hypertension, hyperlipidemia, admitted to [facility] on April 20 secondary to increasing shortness of breath, nonproductive cough and bronchospasm. On admission, she was noted to be lethargic, only opening eyes with vigorous physical stimulation. Of note, she had a venous blood gas performed which revealed a pCO2 of 85 and pH of 7.2. She was subsequently placed on BiPAP as well as methylprednisolone and DuoNeb. The patient was transferred to the medical floor for further management. The patient has history of tobacco use, quit a couple of years ago. There is no history of occupational exposure to chemicals or fumes. PAST MEDICAL HISTORY: Again includes COPD, O2 dependent, hypertension, hyperlipidemia, hypothyroidism, anxiety. CURRENT MEDICATIONS: Include: 1. Solu-Medrol 60 q.12. 2. Tylenol. 3. . 4. Zithromax. 5. Lovenox. 6. Neurontin. 7. Lamictal. 8. Remeron. 9. Zoloft. 10. DuoNeb. 11. Namenda. 12. Lipitor. 13. Aricept. 14. Synthroid. REVIEW OF SYSTEMS: No dyspnea . No chest pain. No palpitations. No fever. No chills. No hemoptysis. PHYSICAL EXAMINATION: General: The patient is an elderly female, awake, confused, but in no acute distress. She is afebrile. Vital Signs: Blood pressure 113/58, respiratory rate 20, O2 saturation is 92% on nasal cannula 2 L. HEENT: Normocephalic, atraumatic. Neck: Supple. Heart: Regular S1, S2. Chest: Diminished breath sounds bilaterally. A few scattered bilateral wheezes. Abdomen: Soft, bowel sounds positive. Extremities: No cyanosis, edema. LABORATORY: WBC 6.7, hemoglobin 12.9, hematocrit 39.3, with platelet count of 202,000. Blood gas: initial blood gas, pH 7.28, pCO2 was 70, and pO2 of 197, bicarbonate of 32, and a saturation of 99%; most recent on 2 L nasal cannula is 7.33, pCO2 of 67, pO2 of 57, and bicarbonate of 34 and a saturation of 87. Chest x-ray: No acute infiltrates or effusions. IMPRESSION: 1. Acute on chronic hypercapnic, hypoxemic respiratory failure secondary to chronic obstructive pulmonary disease, oxygen dependent with acute exacerbation. 2. Hypertension. 3. Hyperlipidemia. 4. Hypothyroidism. PLAN: Supplemental O2. NIPPV as needed. Inhaled bronchodilators. IV steroids. Antibiotics. Followup chest x-ray. ABGs. A CT scan of chest. WILBUR DUTTON M.D. [id number]
[2020-04-21] MEDS: ATORVASTATIN CA 40 MG TABLET (FP) PO SCH (21:30)
[2020-04-21] MEDS: ALBUTEROL SO4 0.083% IH SOL 2.5 MG/3 ML VIAL.NEB. NEB PRN (23:34)
[2020-04-22] MEDS: ALBUTEROL SO4 0.083% IH SOL 2.5 MG/3 ML VIAL.NEB. NEB PRN (04:00)
[2020-04-22] MEDS: LEVOTHYROXINE NA 125 MCG TABLET (FP) PO SCH (06:31)
[2020-04-22 07:58] LABS: CREATININE 0.6 mg/dl (0.55-1.3); HEMATOCRIT 37.6 % (32.4-45.2); HEMOGLOBIN 12.2 GM/dl (10.7-15.3); MCH 29.5 pg (25.7-33.7); MCHC 32.3 g/dl (32.0-36.0); MEAN CELL VOLUME 91.1 fl (80-96); MEAN PLT VOLUME 8.5 fl (7.5-11.1); PLATELET COUNT 186 K/MM3 (134-434); POTASSIUM 4.1 mmol/L (3.5-5.1); RBC 4.13 M/mm3 (3.60-5.2); RDW 15.1 % (11.6-15.6); WHITE BLOOD COUNT 4.9 K/mm3 (4.0-10.8)
[2020-04-22] MEDS: ALBUTEROL SO4 2.5/IPRATROPIUM 0.5 INH SOL 3 ML VIAL.NEB. NEB SCH ×3 (08:20→20:09)
--- NOTE | 2020-04-22 09:58 | PN ---
Progress Note, Physician History of Present Illness: pulmonary alert,feeling better,less dyspneic,on nasal o2 - Current Medication List Current Medications: Active Medications Acetaminophen (Tylenol -) 650 mg PO Q6H PRN PRN Reason: pain or fever Last Admin: 04/21/20 01:53 Dose: 650 mg Documented by: Albuterol Sulfate (Ventolin 0.083% Nebulizer Soln -) 1 amp NEB Q4H PRN PRN Reason: SHORT OF BREATH/WHEEZING Last Admin: 04/22/20 04:00 Dose: 1 amp Documented by: Albuterol/Ipratropium (Duoneb -) 1 amp NEB RQID [facility] Last Admin: 04/21/20 19:39 Dose: 1 amp Documented by: Atorvastatin Calcium (Lipitor -) 40 mg PO HS [facility] Last Admin: 04/21/20 21:30 Dose: 40 mg Documented by: Donepezil HCl (Aricept -) 10 mg PO DAILY [facility] Last Admin: 04/21/20 09:37 Dose: 10 mg Documented by: Enoxaparin Sodium (Lovenox -) 40 mg SQ DAILY [facility] Last Admin: 04/21/20 09:36 Dose: 40 mg Documented by: Gabapentin (Neurontin -) 100 mg PO BID [facility] Last Admin: 04/21/20 21:30 Dose: 100 mg Documented by: Azithromycin (Zithromax 500mg Ivpb (Pre-Docked)) 500 mg in 250 mls @ 250 mls/hr IVPB DAILY [facility] Last Admin: 04/21/20 09:37 Dose: 250 mls/hr Documented by: Lamotrigine (Lamictal -) 100 mg PO BID [facility] Last Admin: 04/21/20 21:30 Dose: 100 mg Documented by: Levothyroxine Sodium (Synthroid -) 125 mcg PO DAILY@0700 [facility] Last Admin: 04/22/20 06:31 Dose: 125 mcg Documented by: Lisinopril (Prinivil) 40 mg PO DAILY [facility] Last Admin: 04/21/20 09:37 Dose: 40 mg Documented by: Memantine (Namenda -) 10 mg PO BID [facility] Last Admin: 04/21/20 21:30 Dose: 10 mg Documented by: Methylprednisolone Sodium Succinate (Solu-Medrol -) 60 mg IVPUSH Q12H [facility] Last Admin: 08/27/20 19:31 Dose: 60 mg Documented by: Mirtazapine (Remeron -) 15 mg PO HS [facility] Last Admin: 04/20/20 23:00 Dose: 15 mg Documented by: Sertraline HCl (Zoloft -) 200 mg PO DAILY [facility] Last Admin: 04/21/20 09:33 Dose: 200 mg Documented by: - Objective Vital Signs: Vital Signs Temperature 98.8 F 04/22/20 06:00 Pulse Rate 85 04/22/20 06:00 Respiratory Rate 20 04/22/20 06:00 Blood Pressure 135/75 04/22/20 06:00 O2 Sat by Pulse Oximetry (%) 95 04/22/20 06:00 Constitutional: Yes: Well Nourished, Calm Eyes: Yes: WNL HENT: Yes: WNL Neck: Yes: WNL Cardiovascular: Yes: Regular Rate and Rhythm, S1, S2 Respiratory: Yes: Wheezes (bilateral wheezes) Gastrointestinal: Yes: Normal Bowel Sounds, Soft Extremities: Yes: WNL Edema: No Labs: CBC, BMP 04/22/20 07:01 04/22/20 07:01 Problem List - Problems (1) COPD exacerbation Code(s): J44.1 - CHRONIC OBSTRUCTIVE PULMONARY DISEASE W (ACUTE) EXACERBATION (2) Acute on chronic respiratory failure with hypoxia Code(s): J96.21 - ACUTE AND CHRONIC RESPIRATORY FAILURE WITH HYPOXIA (3) Hypothyroidism Code(s): E03.9 - HYPOTHYROIDISM, UNSPECIFIED (4) HTN (hypertension) Code(s): I10 - ESSENTIAL (PRIMARY) HYPERTENSION (5) HLD (hyperlipidemia) Code(s): E78.5 - HYPERLIPIDEMIA, UNSPECIFIED (6) Acute on chronic respiratory failure with hypoxia and hypercapnia Code(s): J96.21 - ACUTE AND CHRONIC RESPIRATORY FAILURE WITH HYPOXIA; J96.22 - ACUTE AND CHRONIC RESPIRATORY FAILURE WITH HYPERCAPNIA Assessment/Plan IMP ACUTE ON CHRONIC HYPOXEMIC/HYPERCAPNEIC RESPIRATORY FAILURE COPD O2 DEPENDENT WITH ACUTE EXACERBATION HTN HLD HYPOTHYROID PLAN SUPPLEMENTAL O2 NIPPV NEEDED INHALED BRONCHODILATORS CONTINUE IV STEROIDS ABX F/U ABGS Problem List - Problems (1) COPD exacerbation Code(s): J44.1 - CHRONIC OBSTRUCTIVE PULMONARY DISEASE W (ACUTE) EXACERBATION (2) Acute on chronic respiratory failure with hypoxia Code(s): J96.21 - ACUTE AND CHRONIC RESPIRATORY FAILURE WITH HYPOXIA (3) Hypothyroidism Code(s): E03.9 - HYPOTHYROIDISM, UNSPECIFIED (4) HTN (hypertension) Code(s): I10 - ESSENTIAL (PRIMARY) HYPERTENSION (5) HLD (hyperlipidemia) Code(s): E78.5 - HYPERLIPIDEMIA, UNSPECIFIED (6) Acute on chronic respiratory failure with hypoxia and hypercapnia Code(s): J96.21 - ACUTE AND CHRONIC RESPIRATORY FAILURE WITH HYPOXIA; J96.22 - ACUTE AND CHRONIC RESPIRATORY FAILURE WITH HYPERCAPNIA
[2020-04-22] MEDS: methylPREDNISolone NA SUCC 40 MG/1 ML VIAL IVPUSH SCH (10:05)
[2020-04-22] MEDS: DONEPEZIL HCL 10 MG TABLET (FP) PO SCH (10:06)
[2020-04-22] MEDS: lamoTRIgine 100 MG TABLET PO SCH ×2 (10:06→21:33)
[2020-04-22] MEDS: ENOXAPARIN NA (PORCINE) 40 MG/0.4 ML DISP.SYRIN SQ SCH (10:06)
[2020-04-22] MEDS: GABAPENTIN 100 MG CAPSULE PO SCH ×2 (10:08→21:33)
[2020-04-22] MEDS: AZITHROMYCIN IVPB 500 MG/250 ML BAG IVPB SCH (10:08)
[2020-04-22] MEDS: MEMANTINE HCL 10 MG TABLET (FP) PO SCH ×2 (10:08→21:33)
[2020-04-22] MEDS: LISINOPRIL 20 MG TABLET (FP) PO SCH (10:08)
[2020-04-22] MEDS: SERTRALINE HCL 50 MG TABLET (FP) PO SCH (10:08)
--- NOTE | 2020-04-22 11:35 | PN ---
Progress Note, Physician Chief Complaint: Dx: COPD exacerbation History of Present Illness: 24HR EVENTS -refused BIPAP overnight, wants to go home. 74 year-old female with a history of HTN, HLD, COPD with multiple admissions, hypothyroidism, and anxiety who presented to the ED today with worsening SOB, nonproductive cough, and wheezing.O2 sat at home off O2 in the 60s. In ED patient lethargic. - Current Medication List Current Medications: Active Medications Acetaminophen (Tylenol -) 650 mg PO Q6H PRN PRN Reason: pain or fever Last Admin: 04/21/20 01:53 Dose: 650 mg Documented by: Albuterol Sulfate (Ventolin 0.083% Nebulizer Soln -) 1 amp NEB Q4H PRN PRN Reason: SHORT OF BREATH/WHEEZING Last Admin: 04/22/20 04:00 Dose: 1 amp Documented by: Albuterol/Ipratropium (Duoneb -) 1 amp NEB RQID [facility] Last Admin: 04/22/20 08:20 Dose: 1 amp Documented by: Atorvastatin Calcium (Lipitor -) 40 mg PO HS [facility] Last Admin: 04/21/20 21:30 Dose: 40 mg Documented by: Donepezil HCl (Aricept -) 10 mg PO DAILY [facility] Last Admin: 04/22/20 10:06 Dose: 10 mg Documented by: Enoxaparin Sodium (Lovenox -) 40 mg SQ DAILY [facility] Last Admin: 04/22/20 10:06 Dose: 40 mg Documented by: Gabapentin (Neurontin -) 100 mg PO BID [facility] Last Admin: 04/22/20 10:08 Dose: 100 mg Documented by: Azithromycin (Zithromax 500mg Ivpb (Pre-Docked)) 500 mg in 250 mls @ 250 mls/hr IVPB DAILY [facility] Last Admin: 04/22/20 10:08 Dose: 250 mls/hr Documented by: Lamotrigine (Lamictal -) 100 mg PO BID [facility] Last Admin: 04/22/20 10:06 Dose: 100 mg Documented by: Levothyroxine Sodium (Synthroid -) 125 mcg PO DAILY@0700 [facility] Last Admin: 04/22/20 06:31 Dose: 125 mcg Documented by: Lisinopril (Prinivil) 40 mg PO DAILY [facility] Last Admin: 04/22/20 10:08 Dose: 40 mg Documented by: Memantine (Namenda -) 10 mg PO BID [facility] Last Admin: 04/22/20 10:08 Dose: 10 mg Documented by: Methylprednisolone Sodium Succinate (Solu-Medrol -) 60 mg IVPUSH Q12H [facility] Last Admin: 04/22/20 10:05 Dose: 60 mg Documented by: Mirtazapine (Remeron -) 15 mg PO HS [facility] Last Admin: 04/20/20 23:00 Dose: 15 mg Documented by: Sertraline HCl (Zoloft -) 200 mg PO DAILY [facility] Last Admin: 04/22/20 10:08 Dose: 200 mg Documented by: - Objective Vital Signs: Vital Signs Temperature 98.8 F 04/22/20 06:00 Pulse Rate 85 04/22/20 06:00 Respiratory Rate 20 04/22/20 06:00 Blood Pressure 135/75 04/22/20 06:00 O2 Sat by Pulse Oximetry (%) 95 04/22/20 06:00 Constitutional: Yes: No Distress, Anxious Eyes: Yes: Conjunctiva Clear HENT: Yes: Atraumatic, Normocephalic Neck: Yes: Supple Cardiovascular: Yes: Regular Rate and Rhythm Respiratory: Yes: Diminished, On Nasal O2, Tachypnea Gastrointestinal: Yes: Soft, Abdomen, Obese ...Rectal Exam: Yes: Deferred Musculoskeletal: Yes: WNL Extremities: Yes: WNL Edema: No Peripheral Pulses: Left Radial: 2+, Right Radial: 2+ Integumentary: Yes: WNL Neurological: Yes: Alert, Confusion ...Motor Strength: WNL Psychiatric: Yes: Alert Labs: CBC, BMP 04/22/20 07:01 04/22/20 07:01 Problem List - Problems (1) COPD exacerbation Assessment/Plan: c/w solumedrol and azithromycin CT chest -pending BIPAP as needed Pulm following, recs appreciated yoon pt follows with Dr. Edmundo Boyce at [facility] [phone]. If patient is discharged over the weekend, she has an appointment on 04/25/2020 10:40am Code(s): J44.1 - CHRONIC OBSTRUCTIVE PULMONARY DISEASE W (ACUTE) EXACERBATION (2) DVT prophylaxis Assessment/Plan: Lovenox daily OOB to chair daily Code(s): Z29.9 - ENCOUNTER FOR PROPHYLACTIC MEASURES, UNSPECIFIED (3) Anxiety Assessment/Plan: continue lamictal and zoloft restart remeron Code(s): F41.9 - ANXIETY DISORDER, UNSPECIFIED (4) Hypothyroidism Assessment/Plan: cont synthroid 125mcg daily Code(s): E03.9 - HYPOTHYROIDISM, UNSPECIFIED (5) HTN (hypertension) Assessment/Plan: lisinopril 40mg daily cardiac diet Code(s): I10 - ESSENTIAL (PRIMARY) HYPERTENSION (6) HLD (hyperlipidemia) Assessment/Plan: c/w statin therapy Code(s): E78.5 - HYPERLIPIDEMIA, UNSPECIFIED (7) Dementia Assessment/Plan: continue aricept and namenda Code(s): F03.90 - UNSPECIFIED DEMENTIA WITHOUT BEHAVIORAL DISTURBANCE Impression/Plan Impression/Plan: DISPO: requires inpatient care Code status: full Visit type - Emergency Visit Emergency Visit: Yes ED Registration Date: 04/20/20 Care time: The patient presented to the Emergency Department on the above date and was hospitalized for further evaluation of their emergent condition. - New Patient This patient is new to me today: No - Critical Care Critical Care patient: No - Discharge Referral Referred to [facility] No - Medication Review Med list reviewed for High Risk Meds patients 65 and older: Yes
[2020-04-22] MEDS: MIRTAZAPINE 15 MG TABLET (FP) PO SCH (14:50)
[2020-04-22] MEDS: ATORVASTATIN CA 40 MG TABLET (FP) PO SCH (21:33)
[2020-04-23] MEDS: ALBUTEROL SO4 0.083% IH SOL 2.5 MG/3 ML VIAL.NEB. NEB PRN ×2 (01:05→05:47)
[2020-04-23] MEDS: methylPREDNISolone NA SUCC 40 MG/1 ML VIAL IVPUSH SCH ×4 (01:05→17:09)
[2020-04-23] MEDS: LEVOTHYROXINE NA 125 MCG TABLET (FP) PO SCH (06:08)
[2020-04-23] MEDS: ALBUTEROL SO4 2.5/IPRATROPIUM 0.5 INH SOL 3 ML VIAL.NEB. NEB SCH ×5 (08:47→20:46)
[2020-04-23 09:24] LABS: ALBUMIN 3.7 g/dl (3.4-5.0); BILIRUBIN,TOTAL 0.5 mg/dl (0.2-1); CALCIUM 8.8 mg/dl (8.5-10); CREATININE 0.7 mg/dl (0.55-1.3); MAGNESIUM 1.9 mg/dL (1.8-2.4); POTASSIUM 4.5 mmol/L (3.5-5.1)
[2020-04-23 09:29] LABS: BASO % 0.5 % (0-2.0); HEMATOCRIT 36.1 % (32.4-45.2); HEMOGLOBIN 11.9 GM/dl (10.7-15.3); LYMPH % 18.3 % (8-40); MCH 30.1 pg (25.7-33.7); MCHC 32.8 g/dl (32.0-36.0); MEAN CELL VOLUME 91.6 fl (80-96); MEAN PLT VOLUME 8.2 fl (7.5-11.1); MONO % 14.4 % (3.8-10.2); NEUT % 66.8 % (42.8-82.8); PLATELET COUNT 200 K/MM3 (134-434); RBC 3.95 M/mm3 (3.60-5.2); RDW 15.1 % (11.6-15.6); WHITE BLOOD COUNT 4.2 K/mm3 (4.0-10.8)
[2020-04-23] MEDS: DONEPEZIL HCL 10 MG TABLET (FP) PO SCH (10:20)
[2020-04-23] MEDS: GABAPENTIN 100 MG CAPSULE PO SCH ×2 (10:20→21:18)
[2020-04-23] MEDS: SERTRALINE HCL 50 MG TABLET (FP) PO SCH (10:20)
[2020-04-23] MEDS: lamoTRIgine 100 MG TABLET PO SCH ×2 (10:21→21:18)
[2020-04-23] MEDS: MEMANTINE HCL 10 MG TABLET (FP) PO SCH ×2 (10:22→21:19)
[2020-04-23] MEDS: LISINOPRIL 20 MG TABLET (FP) PO SCH (10:22)
[2020-04-23] MEDS: ENOXAPARIN NA (PORCINE) 40 MG/0.4 ML DISP.SYRIN SQ SCH (10:23)
[2020-04-23] MEDS: AZITHROMYCIN IVPB 500 MG/250 ML BAG IVPB SCH (10:24)
--- NOTE | 2020-04-23 12:04 | PN ---
Physical Exam: SUBJECTIVE: Patient seen and examined CT chest -bronchial thickening, consistent with bronchitis +wheezing, cough IV solumedrol 40mg Q8hrs OBJECTIVE: Vital Signs Period Temp Pulse Resp BP Sys/Bales Pulse Ox Last 24 Hr 97.9 F-98.5 F 78-100 18-19 121-143/56-89 93-99 GENERAL: The patient is awake, alert, and fully oriented, in no acute distress. HEAD: Normal with no signs of trauma. EYES: PERRL, extraocular movements intact, sclera anicteric, conjunctiva clear. No ptosis. ENT: Ears normal, nares patent, oropharynx clear without exudates, moist mucous membranes. NECK: Trachea midline, full range of motion, supple. LUNGS: Breath sounds equal, clear to auscultation bilaterally, no wheezes, no crackles, no accessory muscle use. HEART: Regular rate and rhythm, S1, S2 without murmur, rub or gallop. ABDOMEN: Soft, nontender, nondistended, normoactive bowel sounds, no guarding, no rebound, no hepatosplenomegaly, no masses. EXTREMITIES: 2+ pulses, warm, well-perfused, no edema. NEUROLOGICAL: Cranial nerves II through XII grossly intact. Normal speech, gait not observed. PSYCH: Normal mood, normal affect. SKIN: Warm, dry, normal turgor, no rashes or lesions noted Laboratory Results - last 24 hr 04/23/20 04/23/20 08:50 08:50 WBC 4.2 RBC 3.95 Hgb 11.9 Hct 36.1 MCV 91.6 MCH 30.1 MCHC 32.8 RDW 15.1 Plt Count 200 MPV 8.2 Absolute Neuts (auto) 2.8 Neutrophils % 66.8 Lymphocytes % 18.3 Monocytes % 14.4 H Eosinophils % 0.0 Basophils % 0.5 Sodium 138 Potassium 4.5 Chloride 97 L Carbon Dioxide 33 H Anion Gap 8 BUN 24.0 H Creatinine 0.7 Est GFR (CKD-EPI)AfAm 100.32 Est GFR (CKD-EPI)NonAf 86.56 Random Glucose 102 Calcium 8.8 Magnesium 1.9 Total Bilirubin 0.5 AST 29 ALT 26 Alkaline Phosphatase 73 D Total Protein 6.0 L Albumin 3.7 Active Medications Generic Name Dose Route Start Last Admin Trade Name Freq PRN Reason Stop Dose Admin Acetaminophen 650 mg 04/20/20 09:16 04/21/20 01:53 Tylenol - PO 650 mg Q6H PRN Administration pain or fever Albuterol Sulfate 1 amp 04/21/20 10:29 04/23/20 05:47 Ventolin 0.083% Nebulizer Soln - NEB 1 amp Q4H PRN Administration SHORT OF BREATH/WHEEZING Albuterol/Ipratropium 1 amp 04/20/20 12:00 04/23/20 08:49 Duoneb - NEB 1 amp RQID MARYJANE Administration Atorvastatin Calcium 40 mg 04/20/20 22:00 04/22/20 21:33 Lipitor - PO 40 mg HS MARYJANE Administration Donepezil HCl 10 mg 04/20/20 10:00 04/23/20 10:20 Aricept - PO 10 mg DAILY MARYJANE Administration Enoxaparin Sodium 40 mg 04/20/20 10:00 04/23/20 10:23 Lovenox - SQ 40 mg DAILY MARYJANE Administration Gabapentin 100 mg 04/20/20 10:00 04/23/20 10:20 Neurontin - PO 100 mg BID MARYJANE Administration Azithromycin 500 mg in 250 mls @ 250 mls/hr 04/20/20 14:45 04/23/20 10:24 Zithromax 500mg Ivpb (Pre-Docked) IVPB 250 mls/hr DAILY MARYJANE Administration Lamotrigine 100 mg 04/20/20 10:00 04/23/20 10:21 Lamictal - PO 100 mg BID MARYJANE Administration Levothyroxine Sodium 125 mcg 04/21/20 07:00 04/23/20 06:08 Synthroid - PO 125 mcg DAILY@0700 MARYJANE Administration Lisinopril 40 mg 04/20/20 10:00 04/23/20 10:22 Prinivil PO 40 mg DAILY MARYJANE Administration Memantine 10 mg 04/20/20 22:00 04/23/20 10:22 Namenda - PO 10 mg BID MARYJANE Administration Methylprednisolone Sodium Succinate 40 mg 04/22/20 18:00 04/23/20 10:19 Solu-Medrol - IVPUSH 40 mg Q8H-IV MARYJANE Administration Mirtazapine 15 mg 04/22/20 14:30 04/22/20 14:50 Remeron - PO 15 mg HS MARYJANE Administration Sertraline HCl 200 mg 04/20/20 10:00 04/23/20 10:20 Zoloft - PO 200 mg DAILY MARYJANE Administration ASSESSMENT/PLAN: 74 year-old female with a history of HTN, HLD, COPD with multiple admissions, hypothyroidism, and anxiety #COPD exacerbation Assessment/Plan: c/w solumedrol tapered to 40mg Q8hr - IV azithromycin -CT chest -bronchitis, s/p left upper lobe wedge resection, -BIPAP as needed -Pulm following, recs joan nettles pt follows with Dr. Edmundo Boyce at [facility] [phone]. If patient is discharged over the weekend, she has an appointment on 04/25/2020 10:40am Code(s): J44.1 - CHRONIC OBSTRUCTIVE PULMONARY DISEASE W (ACUTE) EXACERBATION #DVT prophylaxis Assessment/Plan: Lovenox daily OOB to chair daily Code(s): Z29.9 - ENCOUNTER FOR PROPHYLACTIC MEASURES, UNSPECIFIED #Anxiety Assessment/Plan: continue lamictal and zoloft restart remeron Code(s): F41.9 - ANXIETY DISORDER, UNSPECIFIED # Hypothyroidism Assessment/Plan: cont synthroid 125mcg daily Code(s): E03.9 - HYPOTHYROIDISM, UNSPECIFIED # HTN (hypertension) Assessment/Plan: lisinopril 40mg daily cardiac diet Code(s): I10 - ESSENTIAL (PRIMARY) HYPERTENSION # HLD (hyperlipidemia) Assessment/Plan: c/w statin therapy Code(s): E78.5 - HYPERLIPIDEMIA, UNSPECIFIED # Dementia Assessment/Plan: continue aricept and namenda Code(s): F03.90 - UNSPECIFIED DEMENTIA WITHOUT BEHAVIORAL DISTURBANCE Visit type - Emergency Visit Emergency Visit: Yes ED Registration Date: 04/20/20 Care time: The patient presented to the Emergency Department on the above date and was hospitalized for further evaluation of their emergent condition. - New Patient This patient is new to me today: Yes Date on this admission: 04/23/20 - Critical Care Critical Care patient: No - Medication Review Med list reviewed for High Risk Meds patients 65 and older: Yes
[2020-04-23] MEDS: ATORVASTATIN CA 40 MG TABLET (FP) PO SCH (21:18)
[2020-04-23] MEDS: MIRTAZAPINE 15 MG TABLET (FP) PO SCH (21:20)
[2020-04-24] MEDS: methylPREDNISolone NA SUCC 40 MG/1 ML VIAL IVPUSH SCH ×3 (01:40→21:52)
[2020-04-24] MEDS: ALBUTEROL SO4 0.083% IH SOL 2.5 MG/3 ML VIAL.NEB. NEB PRN (03:09)
[2020-04-24] MEDS: LEVOTHYROXINE NA 125 MCG TABLET (FP) PO SCH (06:31)
[2020-04-24] MEDS: ALBUTEROL SO4 2.5/IPRATROPIUM 0.5 INH SOL 3 ML VIAL.NEB. NEB SCH ×4 (08:20→21:00)
[2020-04-24 08:28] LABS: BASO % 0.1 % (0-2.0); EOS % 0.1 % (0-4.5); HEMATOCRIT 39.3 % (32.4-45.2); HEMOGLOBIN 12.6 GM/dl (10.7-15.3); MCH 29.3 pg (25.7-33.7); MCHC 32.2 g/dl (32.0-36.0); MEAN CELL VOLUME 90.9 fl (80-96); MEAN PLT VOLUME 8.6 fl (7.5-11.1); MONO % 6.8 % (3.8-10.2); PLATELET COUNT 223 K/MM3 (134-434); RBC 4.32 M/mm3 (3.60-5.2); RDW 14.9 % (11.6-15.6); WHITE BLOOD COUNT 4.7 K/mm3 (4.0-10.8)
[2020-04-24 08:40] LABS: BILIRUBIN,TOTAL 0.5 mg/dl (0.2-1); CALCIUM 9.2 mg/dl (8.5-10); CREATININE 0.6 mg/dl (0.55-1.3); POTASSIUM 4.6 mmol/L (3.5-5.1); TOT PROT 6.3 g/dl (6.4-8.2)
[2020-04-24] MEDS: lamoTRIgine 100 MG TABLET PO SCH ×2 (10:00→21:51)
[2020-04-24] MEDS: MEMANTINE HCL 10 MG TABLET (FP) PO SCH ×2 (10:01→21:52)
[2020-04-24] MEDS: GABAPENTIN 100 MG CAPSULE PO SCH ×2 (10:01→21:51)
[2020-04-24] MEDS: DONEPEZIL HCL 10 MG TABLET (FP) PO SCH (10:05)
[2020-04-24] MEDS: SERTRALINE HCL 50 MG TABLET (FP) PO SCH (10:05)
[2020-04-24] MEDS: LISINOPRIL 20 MG TABLET (FP) PO SCH (10:06)
[2020-04-24] MEDS: ENOXAPARIN NA (PORCINE) 40 MG/0.4 ML DISP.SYRIN SQ SCH (10:06)
[2020-04-24] MEDS: AZITHROMYCIN IVPB 500 MG/250 ML BAG IVPB SCH (10:06)
--- NOTE | 2020-04-24 10:53 | PN ---
Physical Exam: SUBJECTIVE: Patient seen and examined, eating breakfast, no wheezing, denies cough, sob, chest pain tapering Solumedrol to Q12hrs can likely d/c home tomorrow OBJECTIVE: Vital Signs Period Temp Pulse Resp BP Sys/Bales Pulse Ox Last 24 Hr 97.9 F-98.5 F 69-98 18-18 129-154/64-76 92-95 GENERAL: The patient is awake, alert, and fully oriented, in no acute distress. HEAD: Normal with no signs of trauma. EYES: PERRL, extraocular movements intact, sclera anicteric, conjunctiva clear. No ptosis. ENT: Ears normal, nares patent, oropharynx clear without exudates, moist mucous membranes. NECK: Trachea midline, full range of motion, supple. LUNGS: Breath sounds equal, clear to auscultation bilaterally, no wheezes, no crackles, no accessory muscle use. HEART: Regular rate and rhythm, S1, S2 without murmur, rub or gallop. ABDOMEN: Soft, nontender, nondistended, normoactive bowel sounds, no guarding, no rebound, no hepatosplenomegaly, no masses. EXTREMITIES: 2+ pulses, warm, well-perfused, no edema. NEUROLOGICAL: Cranial nerves II through XII grossly intact. Normal speech, gait not observed. PSYCH: Normal mood, normal affect. SKIN: Warm, dry, normal turgor, no rashes or lesions noted Laboratory Results - last 24 hr 04/24/20 04/24/20 06:00 08:04 WBC 4.7 RBC 4.32 Hgb 12.6 Hct 39.3 MCV 90.9 MCH 29.3 MCHC 32.2 RDW 14.9 Plt Count 223 MPV 8.6 Absolute Neuts (auto) 3.8 Neutrophils % 80.0 Lymphocytes % 13.0 Monocytes % 6.8 Eosinophils % 0.1 Basophils % 0.1 Sodium 138 Potassium 4.6 Chloride 95 L Carbon Dioxide 33 H Anion Gap 10 BUN 20.0 H Creatinine 0.6 Est GFR (CKD-EPI)AfAm 105.54 Est GFR (CKD-EPI)NonAf 91.06 Random Glucose 107 H Calcium 9.2 Magnesium 2.0 Total Bilirubin 0.5 AST 28 ALT 27 Alkaline Phosphatase 75 Total Protein 6.3 L Albumin 4.0 Active Medications Generic Name Dose Route Start Last Admin Trade Name Freq PRN Reason Stop Dose Admin Acetaminophen 650 mg 04/20/20 09:16 04/21/20 01:53 Tylenol - PO 650 mg Q6H PRN Administration pain or fever Albuterol Sulfate 1 amp 04/21/20 10:29 04/24/20 03:09 Ventolin 0.083% Nebulizer Soln - NEB 1 amp Q4H PRN Administration SHORT OF BREATH/WHEEZING Albuterol/Ipratropium 1 amp 04/20/20 12:00 04/24/20 08:20 Duoneb - NEB 1 amp RQID MARYJANE Administration Atorvastatin Calcium 40 mg 04/20/20 22:00 04/23/20 21:18 Lipitor - PO 40 mg HS MARYJANE Administration Donepezil HCl 10 mg 04/20/20 10:00 04/24/20 10:05 Aricept - PO 10 mg DAILY MARYJANE Administration Enoxaparin Sodium 40 mg 04/20/20 10:00 04/24/20 10:06 Lovenox - SQ 40 mg DAILY MARYJANE Administration Gabapentin 100 mg 04/20/20 10:00 04/24/20 10:01 Neurontin - PO 100 mg BID MARYJANE Administration Azithromycin 500 mg in 250 mls @ 250 mls/hr 04/20/20 14:45 04/24/20 10:06 Zithromax 500mg Ivpb (Pre-Docked) IVPB 250 mls/hr DAILY M[facility]JANE Administration Lamotrigine 100 mg 04/20/20 10:00 04/24/20 10:00 Lamictal - PO 100 mg BID MARYJANE Administration Levothyroxine Sodium 125 mcg 04/21/20 07:00 04/24/20 06:31 Synthroid - PO 125 mcg DAILY@0700 MARYJANE Administration Lisinopril 40 mg 04/20/20 10:00 04/24/20 10:06 Prinivil PO 40 mg DAILY MARYJANE Administration Memantine 10 mg 04/20/20 22:00 04/24/20 10:01 Namenda - PO 10 mg BID MARYJANE Administration Methylprednisolone Sodium Succinate 40 mg 04/24/20 21:00 Solu-Medrol - IVPUSH Q12H MARYJANE Mirtazapine 15 mg 04/22/20 14:30 04/23/20 21:20 Remeron - PO 15 mg HS MARYJANE Administration Sertraline HCl 200 mg 04/20/20 10:00 04/24/20 10:05 Zoloft - PO 200 mg DAILY MARYJANE Administration ASSESSMENT/PLAN: 74 year-old female with a history of HTN, HLD, COPD with multiple admissions, hypothyroidism, and anxiety #COPD exacerbation Assessment/Plan: c/w solumedrol tapered to 40mg q12hrs - IV azithromycin -CT chest -bronchitis, s/p left upper lobe wedge resection, -BIPAP as needed -Pulm following, recs joan nettles pt follows with Dr. Edmundo Boyce at [facility] [phone]. If patient is discharged over the weekend, she has an appointment on 04/25/2020 10:40am Code(s): J44.1 - CHRONIC OBSTRUCTIVE PULMONARY DISEASE W (ACUTE) EXACERBATION #DVT prophylaxis Assessment/Plan: Lovenox daily OOB to chair daily Code(s): Z29.9 - ENCOUNTER FOR PROPHYLACTIC MEASURES, UNSPECIFIED #Anxiety Assessment/Plan: continue lamictal and zoloft restart remeron Code(s): F41.9 - ANXIETY DISORDER, UNSPECIFIED # Hypothyroidism Assessment/Plan: cont synthroid 125mcg daily Code(s): E03.9 - HYPOTHYROIDISM, UNSPECIFIED # HTN (hypertension) Assessment/Plan: lisinopril 40mg daily cardiac diet Code(s): I10 - ESSENTIAL (PRIMARY) HYPERTENSION # HLD (hyperlipidemia) Assessment/Plan: c/w statin therapy Code(s): E78.5 - HYPERLIPIDEMIA, UNSPECIFIED # Dementia Assessment/Plan: continue aricept and namenda Code(s): F03.90 - UNSPECIFIED DEMENTIA WITHOUT BEHAVIORAL DISTURBANCE Visit type - Emergency Visit Emergency Visit: Yes ED Registration Date: 04/20/20 Care time: The patient presented to the Emergency Department on the above date and was hospitalized for further evaluation of their emergent condition. - New Patient This patient is new to me today: No - Critical Care Critical Care patient: No - Medication Review Med list reviewed for High Risk Meds patients 65 and older: No (dementia pt)
--- NOTE | 2020-04-24 19:00 | ED.PROV ---
Physicial Exam I saw and examined the patient. - Vital Signs Last Vital Signs Temp Pulse Resp BP Pulse Ox 98.2 F 89 18 100/79 94 L 04/24/20 18:40 04/24/20 18:40 04/24/20 18:40 04/24/20 18:40 04/24/20 18:40 Critical Care Time/MDM Note - Medical Decision Making Note: 04/24/20 18:58 pt was called up to the floor for fall from bed. admitted for copd. she tripped over her O2 tubing when she was moving. no head ct imaging no LOC pt feels well, conversive, no head trauma, GCS 15. on O2 for her copd and stable from respiratory standpoint. no xray imaging indicated pelvis stable, NVI. no focal neuro deficits communicated with RN team and metalizing supervisor. 04/24/20 19:07 04/24/20 19:07
[2020-04-24] MEDS: ATORVASTATIN CA 40 MG TABLET (FP) PO SCH (21:51)
[2020-04-24] MEDS: MIRTAZAPINE 15 MG TABLET (FP) PO SCH (21:52)
[2020-04-25] MEDS: LEVOTHYROXINE NA 125 MCG TABLET (FP) PO SCH (06:31)
[2020-04-25] MEDS: ALBUTEROL SO4 2.5/IPRATROPIUM 0.5 INH SOL 3 ML VIAL.NEB. NEB SCH (10:00)
[2020-04-25] MEDS: methylPREDNISolone NA SUCC 40 MG/1 ML VIAL IVPUSH SCH ×2 (10:14→21:05)
[2020-04-25] MEDS: AZITHROMYCIN IVPB 500 MG/250 ML BAG IVPB SCH (10:15)
[2020-04-25] MEDS: SERTRALINE HCL 50 MG TABLET (FP) PO SCH (10:19)
[2020-04-25] MEDS: lamoTRIgine 100 MG TABLET PO SCH ×2 (10:19→21:04)
[2020-04-25] MEDS: GABAPENTIN 100 MG CAPSULE PO SCH ×2 (10:19→21:05)
[2020-04-25] MEDS: LISINOPRIL 20 MG TABLET (FP) PO SCH (10:23)
[2020-04-25] MEDS: ENOXAPARIN NA (PORCINE) 40 MG/0.4 ML DISP.SYRIN SQ SCH (10:23)
[2020-04-25] MEDS: DONEPEZIL HCL 10 MG TABLET (FP) PO SCH (10:23)
[2020-04-25] MEDS: MEMANTINE HCL 10 MG TABLET (FP) PO SCH ×2 (10:37→21:05)
[2020-04-25 11:15] LABS: ARTERIAL BLD GAS O2 SATURATION 97.4 mmHg (95-98); ARTERIAL BLOOD GAS BASE EXCESS 7.9 mmol/L (-2-2); ARTERIAL BLOOD GAS PO2 92.3 mmHg (80-100); ARTERIAL BLOOD GAS pH 7.468 (7.350-7.450)
--- NOTE | 2020-04-25 11:28 | PN ---
Physical Exam: SUBJECTIVE: Patient seen and examined. Feeling well; states her breathing is much better. Fell last night after tripping over O2 tubing, but does not recall this. HCT obtained per protocol demonstrated to acute intracranial process. OBJECTIVE: PaCO2 much improved (46) today. Mental status improved. Wheezing absent. Vital Signs Period Temp Pulse Resp BP Sys/Bales Pulse Ox Last 24 Hr 98.1 F-98.9 F 75-92 18-19 100-149/51-87 90-99 GENERAL: The patient is awake, alert, and fully oriented, in no acute distress. HEAD: Normal with no signs of trauma. EYES: PERRL, extraocular movements intact, sclera anicteric, conjunctiva clear. No ptosis. ENT: Ears normal, nares patent, oropharynx clear without exudates, moist mucous membranes. NECK: Trachea midline, full range of motion, supple. LUNGS: Breath sounds equal, clear to auscultation bilaterally, no wheezes, no crackles, no accessory muscle use. HEART: Regular rate and rhythm, S1, S2 without murmur, rub or gallop. ABDOMEN: Soft, nontender, nondistended, normoactive bowel sounds, no guarding, no rebound, no hepatosplenomegaly, no masses. EXTREMITIES: 2+ pulses, warm, well-perfused, no edema. NEUROLOGICAL: Cranial nerves II through XII grossly intact. Normal speech, gait not observed. PSYCH: Normal mood, normal affect. SKIN: Warm, dry, normal turgor, no rashes or lesions noted Laboratory Results - last 24 hr 04/25/20 10:30 Anticoagulation Therapy No Result Required. Puncture Site No Result Required. Patient Temperature No Result Required. ABG pH 7.468 H ABG pCO2 46.10 H ABG pO2 92.3 ABG HCO3 32.6 H ABG O2 Sat (Measured) 97.4 ABG O2 Content No Result Required. ABG Base Excess 7.9 H Rasheed Test No Result Required. Patient On Oxygen No Result Required. O2 Delivery Device No Result Required. Oxygen Flow Rate No Result Required. Vent Mode No Result Required. Vent Rate No Result Required. Mechanical Rate No Result Required. PEEP No Result Required. Pressure Support Vent No Result Required. Active Medications Generic Name Dose Route Start Last Admin Trade Name Freq PRN Reason Stop Dose Admin Acetaminophen 650 mg 04/20/20 09:16 04/21/20 01:53 Tylenol - PO 650 mg Q6H PRN Administration pain or fever Albuterol Sulfate 1 amp 04/21/20 10:29 04/24/20 03:09 Ventolin 0.083% Nebulizer Soln - NEB 1 amp Q4H PRN Administration SHORT OF BREATH/WHEEZING Albuterol/Ipratropium 1 amp 04/20/20 12:00 04/25/20 10:00 Duoneb - NEB 1 amp RQID MARYJANE Administration Atorvastatin Calcium 40 mg 04/20/20 22:00 04/24/20 21:51 Lipitor - PO 40 mg HS MARYJANE Administration Donepezil HCl 10 mg 04/20/20 10:00 04/25/20 10:23 Aricept - PO 10 mg DAILY MARYJANE Administration Enoxaparin Sodium 40 mg 04/20/20 10:00 04/25/20 10:23 Lovenox - SQ 40 mg DAILY MARYJANE Administration Gabapentin 100 mg 04/20/20 10:00 04/25/20 10:19 Neurontin - PO 100 mg BID MARYJANE Administration Azithromycin 500 mg in 250 mls @ 250 mls/hr 04/20/20 14:45 04/25/20 10:15 Zithromax 500mg Ivpb (Pre-Docked) IVPB 250 mls/hr DAILY MARYJANE Administration Lamotrigine 100 mg 04/20/20 10:00 04/25/20 10:19 Lamictal - PO 100 mg BID MARYJANE Administration Levothyroxine Sodium 125 mcg 04/21/20 07:00 04/25/20 06:31 Synthroid - PO 125 mcg DAILY@0700 MARYJANE Administration Lisinopril 40 mg 04/20/20 10:00 04/25/20 10:23 Prinivil PO 40 mg DAILY MARYJANE Administration Memantine 10 mg 04/20/20 22:00 04/25/20 10:37 Namenda - PO 10 mg BID MARYJANE Administration Methylprednisolone Sodium Succinate 40 mg 04/24/20 22:00 04/25/20 10:14 Solu-Medrol - IVPUSH 40 mg BID MARYJANE Administration Mirtazapine 15 mg 04/22/20 14:30 04/24/20 21:52 Remeron - PO 15 mg HS MARYJANE Administration Sertraline HCl 200 mg 04/20/20 10:00 04/25/20 10:19 Zoloft - PO 200 mg DAILY MARYJANE Administration ASSESSMENT/PLAN: 74 year-old female with a history of HTN, HLD, COPD with multiple admissions, hypothyroidism, and anxiety admitted with COPD exacerbation/hypercapneic respiratory failure. #COPD exacerbation Assessment/Plan: 1. Solumedrol tapered to 40mg q12hrs 2. Can dc IV azithromycin 3. CT chest -bronchitis, s/p left upper lobe wedge resection, 4. BIPAP as needed 5. Continue Duonebs 6. Rx Advair on dc- patient states she does not use any maintenance meds 7. Has home O2 #DVT prophylaxis Assessment/Plan: Lovenox daily OOB to chair daily Code(s): Z29.9 - ENCOUNTER FOR PROPHYLACTIC MEASURES, UNSPECIFIED #Anxiety Assessment/Plan: continue lamictal and zoloft restart remeron Code(s): F41.9 - ANXIETY DISORDER, UNSPECIFIED # Hypothyroidism Assessment/Plan: cont synthroid 125mcg daily Code(s): E03.9 - HYPOTHYROIDISM, UNSPECIFIED # HTN (hypertension) Assessment/Plan: lisinopril 40mg daily cardiac diet Code(s): I10 - ESSENTIAL (PRIMARY) HYPERTENSION # HLD (hyperlipidemia) Assessment/Plan: c/w statin therapy Code(s): E78.5 - HYPERLIPIDEMIA, UNSPECIFIED # Dementia Assessment/Plan: continue aricept and namenda Code(s): F03.90 - UNSPECIFIED DEMENTIA WITHOUT BEHAVIORAL DISTURBANCE DISPO: Possible dc tomorrow am if tolerating lower dose steroids/mental status remains good. Problem List - Problems (1) COPD exacerbation Code(s): J44.1 - CHRONIC OBSTRUCTIVE PULMONARY DISEASE W (ACUTE) EXACERBATION (2) Acute hypercapnic respiratory failure Code(s): J96.02 - ACUTE RESPIRATORY FAILURE WITH HYPERCAPNIA (3) Anxiety Code(s): F41.9 - ANXIETY DISORDER, UNSPECIFIED (4) Hypothyroidism Code(s): E03.9 - HYPOTHYROIDISM, UNSPECIFIED (5) HTN (hypertension) Code(s): I10 - ESSENTIAL (PRIMARY) HYPERTENSION (6) HLD (hyperlipidemia) Code(s): E78.5 - HYPERLIPIDEMIA, UNSPECIFIED (7) DVT prophylaxis Code(s): Z29.9 - ENCOUNTER FOR PROPHYLACTIC MEASURES, UNSPECIFIED Visit type - Emergency Visit Emergency Visit: Yes ED Registration Date: 08/26/20 Care time: The patient presented to the Emergency Department on the above date and was hospitalized for further evaluation of their emergent condition. - New Patient This patient is new to me today: No - Critical Care Critical Care patient: No - Discharge Referral Referred to [facility] No - Medication Review Med list reviewed for High Risk Meds patients 65 and older: Yes
--- NOTE | 2020-04-25 14:12 | PN ---
Progress Note (short form) - Note Progress Note: PULMONARY Awake/alert minor cough/occasional wheeze No acute events overnight VSS/afebrile Constitutional: Yes: Well Nourished, Calm Eyes: Yes: WNL HENT: Yes: WNL Neck: Yes: WNL Cardiovascular: Yes: Regular Rate and Rhythm, S1, S2 Respiratory: Yes: Wheezes (bilateral wheezes) Gastrointestinal: Yes: Normal Bowel Sounds, Soft Extremities: Yes: WNL Edema: No Labs: noted CT chest reviewed 7.46/46/92/97% 2L/M o2 IMP ACUTE ON CHRONIC HYPOXEMIC/HYPERCAPNEIC RESPIRATORY FAILURE COPD O2 DEPENDENT WITH ACUTE EXACERBATION HTN HLD HYPOTHYROID PLAN SUPPLEMENTAL O2 NIPPV NEEDED INHALED BRONCHODILATORS CONTINUE IV STEROIDS YANETH Morillo MD
[2020-04-25] MEDS: ATORVASTATIN CA 40 MG TABLET (FP) PO SCH (21:04)
[2020-04-25] MEDS: MIRTAZAPINE 15 MG TABLET (FP) PO SCH (21:05)
[2020-04-26] MEDS: LEVOTHYROXINE NA 125 MCG TABLET (FP) PO SCH (07:00)
[2020-04-26 07:57] VITALS: BP 122/60; PULSE 74; TEMP 98.1
[2020-04-26 08:03] LABS: EOS % 0.1 % (0-4.5); HEMATOCRIT 41.3 % (32.4-45.2); HEMOGLOBIN 13.3 GM/dl (10.7-15.3); LYMPH % 18.7 % (8-40); MCH 29.3 pg (25.7-33.7); MCHC 32.3 g/dl (32.0-36.0); MEAN CELL VOLUME 90.7 fl (80-96); MEAN PLT VOLUME 8.4 fl (7.5-11.1); MONO % 13.4 % (3.8-10.2); NEUT % 66.8 % (42.8-82.8); PLATELET COUNT 246 K/MM3 (134-434); RBC 4.55 M/mm3 (3.60-5.2); RDW 15.1 % (11.6-15.6); WHITE BLOOD COUNT 6.3 K/mm3 (4.0-10.8)
[2020-04-26 08:06] LABS: CALCIUM 8.6 mg/dl (8.5-10); CREATININE 0.6 mg/dl (0.55-1.3); POTASSIUM 4.6 mmol/L (3.5-5.1)
[2020-04-26] MEDS: GABAPENTIN 100 MG CAPSULE PO SCH (09:20)
[2020-04-26] MEDS: SERTRALINE HCL 50 MG TABLET (FP) PO SCH (09:20)
[2020-04-26] MEDS: DONEPEZIL HCL 10 MG TABLET (FP) PO SCH (09:20)
[2020-04-26] MEDS: MEMANTINE HCL 10 MG TABLET (FP) PO SCH (09:21)
[2020-04-26] MEDS: lamoTRIgine 100 MG TABLET PO SCH (09:21)
[2020-04-26] MEDS: LISINOPRIL 20 MG TABLET (FP) PO SCH (09:21)
[2020-04-26] MEDS: ENOXAPARIN NA (PORCINE) 40 MG/0.4 ML DISP.SYRIN SQ SCH (09:21)
[2020-04-26] MEDS: methylPREDNISolone NA SUCC 40 MG/1 ML VIAL IVPUSH SCH (09:22)
[2020-04-26] MEDS: ALBUTEROL SO4 0.083% IH SOL 2.5 MG/3 ML VIAL.NEB. NEB PRN (09:22)
--- NOTE | 2020-04-26 09:47 | DS ---
Physical Exam: SUBJECTIVE: Patient seen and examined. Feels well. Denies SOB. OBJECTIVE: Vital Signs Period Temp Pulse Resp BP Sys/Bales Pulse Ox Last 24 Hr 98.1 F-98.8 F 74-94 16-19 121-146/59-78 90-97 PHYSICAL EXAM GENERAL: The patient is awake, alert, and fully oriented, in no acute distress. HEAD: Normal with no signs of trauma. EYES: PERRL, extraocular movements intact, sclera anicteric, conjunctiva clear. ENT: Ears normal, nares patent, oropharynx clear without exudates, moist mucous membranes. NECK: Trachea midline, full range of motion, supple. LUNGS: Breath sounds equal, scant expiratory wheezes, no crackles, no accessory muscle use. HEART: Regular rate and rhythm, S1, S2 without murmur, rub or gallop. ABDOMEN: Soft, nontender, nondistended, normoactive bowel sounds, no guarding, no rebound, no hepatosplenomegaly, no masses. EXTREMITIES: 2+ pulses, warm, well-perfused, no edema. NEUROLOGICAL: Cranial nerves II through XII grossly intact. Normal speech, gait not observed. PSYCH: Normal mood, normal affect. SKIN: Warm, dry, normal turgor, no rashes or lesions noted. LABS Laboratory Results - last 24 hr 04/25/20 04/26/20 04/26/20 10:30 07:03 07:03 WBC 6.3 RBC 4.55 Hgb 13.3 Hct 41.3 MCV 90.7 MCH 29.3 MCHC 32.3 RDW 15.1 Plt Count 246 MPV 8.4 Absolute Neuts (auto) 4.2 Neutrophils % 66.8 Lymphocytes % 18.7 Monocytes % 13.4 H Eosinophils % 0.1 Basophils % 1.0 Anticoagulation Therapy No Result Required. Puncture Site No Result Required. Patient Temperature No Result Required. ABG pH 7.468 H ABG pCO2 46.10 H ABG pO2 92.3 ABG HCO3 32.6 H ABG O2 Sat (Measured) 97.4 ABG O2 Content No Result Required. ABG Base Excess 7.9 H Rasheed Test No Result Required. Patient On Oxygen No Result Required. O2 Delivery Device No Result Required. Oxygen Flow Rate No Result Required. Vent Mode No Result Required. Vent Rate No Result Required. Mechanical Rate No Result Required. PEEP No Result Required. Pressure Support Vent No Result Required. Sodium 137 Potassium 4.6 Chloride 97 L Carbon Dioxide 33 H Anion Gap 7 L BUN 29.0 H Creatinine 0.6 Est GFR (CKD-EPI)AfAm 105.54 Est GFR (CKD-EPI)NonAf 91.06 Random Glucose 98 Calcium 8.6 HOSPITAL COURSE: This is a 74 year-old female with a history of HTN, HLD, COPD with multiple admissions, hypothyroidism, and anxiety who presented to the ED on 04/20 with worsening SOB, nonproductive cough, and wheezing. At the time of admission, arterial pH was 7.28 with PaCO2 70. The patient improved with steroids, nebulizers, and NIPPV. During admission, steroids were continued and tapered, DuoNebs were continued, and she completed a short course of azithromycin. Her WOB and wheezing greatly improved. She is able to ambulate with PT. We will start the patient on Advair as she states she does not currently use any maintenance meds. She has home O2 which she uses at night. The patient will follow up with her retail grocer at [facility], with who she has been in contact. Return precautions were reviewed. Date of Admission:04/20/20 Date of Discharge: 04/26/20 Minutes to complete discharge: 45 Discharge Summary Problems reviewed: Yes Reason For Visit: SOB Current Active Problems Dementia (Chronic) Condition: Improved - Instructions Diet, Activity, Other Instructions: Continue all of your prescribed medications. Add Advair daily (even when you are not having symptoms) to prevent flare-ups. Take prednisone (steroid) daily for the full course. Follow up with Dr. Edmundo Boyce at [facility] [phone] this week. Return here for difficulty breathing or any other concerning symptoms. Disposition: HOME - Home Medications Comprehensive Discharge Medication List: Ambulatory Orders Atorvastatin Ca [Lipitor] 40 mg PO DAILY 01/12/16 Lisinopril [Prinivil] 40 mg PO DAILY 01/12/16 Lamotrigine [Lamictal] 100 mg PO BID 07/08/16 Sertraline HCl [Zoloft] 200 mg PO DAILY 08/09/16 Albuterol Sulfate Inhaler - [Ventolin HFA Inhaler -] 1 - 2 inh PO QID #1 inhaler 02/16/20 Gabapentin [Neurontin] 100 mg PO BID 04/20/20 Levothyroxine [Synthroid -] 125 mcg PO DAILY@0700 04/20/20 Memantine HCl/Donepezil HCl [Namzaric 28 mg-10 mg Capsule] 1 each PO DAILY 04/20/20 Mirtazapine 15 mg PO HS 04/20/20 Albuterol 0.083% Nebulizer Pippa [Ventolin 0.083% Nebulizer Soln -] 1 neb NEB Q4H PRN #20 vial 04/26/20 Fluticasone/Salmeterol [Advair Hfa 115-21 Mcg Inhaler] 1 inh PO BID #1 inhaler 04/26/20 Prednisone [Prednisone 50 MG TABLETS] 50 mg PO DAILY #5 tablet 04/26/20 Problem List - Problems (1) COPD exacerbation Code(s): J44.1 - CHRONIC OBSTRUCTIVE PULMONARY DISEASE W (ACUTE) EXACERBATION (2) Acute hypercapnic respiratory failure Code(s): J96.02 - ACUTE RESPIRATORY FAILURE WITH HYPERCAPNIA (3) Anxiety Code(s): F41.9 - ANXIETY DISORDER, UNSPECIFIED (4) Hypothyroidism Code(s): E03.9 - HYPOTHYROIDISM, UNSPECIFIED (5) HTN (hypertension) Code(s): I10 - ESSENTIAL (PRIMARY) HYPERTENSION (6) HLD (hyperlipidemia) Code(s): E78.5 - HYPERLIPIDEMIA, UNSPECIFIED (7) DVT prophylaxis Code(s): Z29.9 - ENCOUNTER FOR PROPHYLACTIC MEASURES, UNSPECIFIED This patient is new to me today: No Emergency Visit: Yes ED Registration Date: 04/20/20 Care time: The patient presented to the Emergency Department on the above date and was hospitalized for further evaluation of their emergent condition. Critical Care patient: No - Discharge Referral Referred to [facility] No
== END 2020-04-26 12:54 | disposition home or self-care (01) | DRG 189 ==
LOC: FER 05:29 → FM/S 21:19
PROVIDERS: ADMIT Internal Medicine; ATTEND Registered Nurse Emergency
DX: J96.21 Acute and chronic respiratory failure with hypoxia (principal); J44.1 Chronic obstructive pulmonary disease with (acute) exacerbation; J45.901 Unspecified asthma with (acute) exacerbation; J96.22 Acute and chronic respiratory failure with hypercapnia; F41.9 Anxiety disorder, unspecified; E03.9 Hypothyroidism, unspecified; I10 Essential (primary) hypertension; E78.5 Hyperlipidemia, unspecified; F03.90 Unspecified dementia, unspecified severity, without behavioral disturbance, psychotic disturbance, mood disturbance, and anxiety
CPT/HCPCS: 36415; 36600; 70450-TC; 71045-TC-FY; 71250-TC; 80048; 80053; 82803; 83735; 84484; 85025; 85027; 93005; 94640; 99285-25; U0003

== ENCOUNTER 2020-05-18 06:00 | Emergency (ER) | payer OTHER, MEDICARE ==
--- NOTE | 2020-05-18 06:06 | PDOC ---
History of Present Illness - General Chief Complaint: Shortness of Breath Stated Complaint: sob Time Seen by Provider: 05/18/20 06:05 History Source: Patient, Family Exam Limitations: No Limitations - History of Present Illness Initial Comments: 05/18/20 06:15 This is a 74-year-old female brought in by her daughter for evaluation of acute exacerbation of COPD. Patient's O2 sat were less than 80 when she got here. Patient is on home oxygen but did not come in on oxygen. Patient's O2 sats on 2 L is 92 to 93%. Patient denies any fevers, chills, nausea, vomiting, diarrhea. Patient said she has been taking her medications. Allergies: as per nursing notes Past Medical History: none Social history: Lives with family. 30 + year Smoking history stopped 3 years ago no alcohol. No illicit drugs. Surgical history: None General: No fevers or chills, no weakness, no weight loss HEENT: No change in vision. No sore throat,. No ear pain CardioVascular: no chest discomfort. No shortness of breath Respiratory:+ The right the night before the cough, + wheezing. Gastrointestinal: no nausea, vomiting, diarrhea or constipation, No rectal bleeding Genitourinary: No dysuria, hematuria, or frequency Musculoskeletal: No joint or muscle pain or swelling Neurologic: No headache, vertigo, dizziness or loss of consciousness Psychiatric: nor depression Skin: No rashes or easy bruising Endocrine: no increased thirst or abnormal weight change Allergic: no skin or latex allergy All other systems reviewed and normal Exam: General: Well-nourished well-developed individual, no acute distress HEENT: Throat: Normal, tonsils normal, no erythema or exudate Neck: Supple, no meningeal signs, no lymphadenopathy Eyes::Pupils equal reactive and round, extraocular motion intact Chest: Nontender to palpation Cardiac: S1-S2 normal, regular rate and rhythm, no murmurs rubs or gallops Respiratory: There is expiratory wheezing diffusely in all madrigal Abdomen: Soft, nondistended, normal bowel sounds, there is no tenderness on palpation diffusely Extremities: Warm, dry, no cyanosis, clubbing, or edema Skin: No rashes Neuro: Alert, CN II - XII intact, nonfocal exam with normal strength, normal sensation, normal reflexes, normal gait, Psych: Normal mood and affect ECG shows normal sinus rhythm at a rate of [address]-T wave changes Plan: This is a 74-year-old female with acute exacerbation of COPD who developed difficulty breathing overnight. Work-up was initiated including CBC, comp, EKG, chest x-ray, cardiac enzymes. Patient given DuoNeb Past History - Medical History Allergies/Adverse Reactions: Allergies Allergy/AdvReac Type Severity Reaction Status Date / Time No Known Allergies Allergy Verified 05/18/20 06:02 Home Medications: Ambulatory Orders Atorvastatin Ca [Lipitor] 40 mg PO DAILY 01/12/16 Lisinopril [Prinivil] 40 mg PO DAILY 01/12/16 Lamotrigine [Lamictal] 100 mg PO BID 07/08/16 Sertraline HCl [Zoloft] 200 mg PO DAILY 08/09/16 Albuterol Sulfate Inhaler - [Ventolin HFA Inhaler -] 1 - 2 inh PO QID #1 inhaler 02/16/20 Gabapentin [Neurontin] 100 mg PO BID 04/20/20 Levothyroxine [Synthroid -] 125 mcg PO DAILY@0700 04/20/20 Memantine HCl/Donepezil HCl [Namzaric 28 mg-10 mg Capsule] 1 each PO DAILY 04/20/20 Mirtazapine 15 mg PO HS 04/20/20 Albuterol 0.083% Nebulizer Pippa [Ventolin 0.083% Nebulizer Soln -] 1 neb NEB Q4H PRN #20 vial 04/26/20 Fluticasone/Salmeterol [Advair Hfa 115-21 Mcg Inhaler] 1 inh PO BID #1 inhaler 04/26/20 Prednisone [Prednisone 50 MG TABLETS] 50 mg PO DAILY #5 tablet 04/26/20 Anemia: No Asthma: Yes Cancer: Yes (LEFT LUNG CA 2017) Cardiac Disorders: No CVA: No COPD: Yes (uses 02 at home 2L) CHF: No DVT: No Dementia: Yes Diabetes: Yes Dialysis: No GI Disorders: No Disorders: No HTN: Yes Hypercholesterolemia: Yes Kidney Stones: No Liver Disease: No Psychiatric Problems: Yes (anxiety) Seizures: No Thyroid Disease: Yes (HYPO) Lung CA: Yes - Surgical History Abdominal Surgery: Yes Appendectomy: Yes Cardiac Surgery: No Cholecystectomy: No Gastric Stapling: No GI Surgery: No Lung Surgery: Yes (LEFT PARTIAL LOBECTOMY) Neurologic Surgery: No Orthopedic Surgery: Yes (B/L TOTAL KNEE REPLACEMENT) - Immunization History Td Vaccination: Yes TDAP Vaccination: No Immunization Up to Date: No - Psycho-Social/Smoking History Smoking Status: Yes Smoking History: Unknown if ever smoked Years of Tobacco Use: 20 Have you smoked in the past 12 months: Yes Number of Cigarettes Smoked Daily: 15 If you are a former smoker, when did you quit?: 2018 'Breaking Loose' booklet given: 08/31/14 Respiratory Specific PMHX - Complaint Specific PMHX Hx Bronchitis: Yes Hx Pneumonia: No Hx Pulmonary Embolus: No Hx TB (Tuberculosis): No Discharge - Discharge Information Condition: Stable - Follow up/Referral Referrals: Florence Galindo [Primary Care Provider] - - Patient Discharge Instructions - Post Discharge Activity
[2020-05-18] MEDS ORDERED: ALBUTEROL SO4 2.5/IPRATROPIUM 0.5 INH SOL 3 ML VIAL.NEB. NEB ONE ×4 (06:14→09:20)
[2020-05-18 06:17] VITALS: TEMP 98.8; BMI 31.2
--- OUTSIDE RECORDS SUMMARY | 2020-05-18 06:22 | XMS ---
:1945 Author Organization [facility] Support Name Relationship Address Phone RE, RETIRED Unavailable Unavailable Unavailable RE Unavailable Unavailable Unavailable SUSANNE BOYD [place] [address] YOSHI GOMES [place] [address] MERON CHUN Unavailable [address] [place] [address] YOSHI GOMES spouse [phone] [phone] [place] [address] KERWIN Unavailable Un[place] [address] Re-disclosure Warning The records that you are about to access may contain information from federally- assisted alcohol or drug abuse programs. If such information is present, then the following federally mandated warning applies: This information has been disclosed to you from records protected by federal confidentiality rules (42 CFR part 2). The federal rules prohibit you from making any further disclosure of this information unless further disclosure is expressly permitted by the written consent of the person to whom it pertains or as otherwise permitted by 42 CFR part 2. A general authorization for the release of medical or other information is NOT sufficient for this purpose. The Federal rules restrict any use of the information to criminally investigate or prosecute any alcohol or drug abuse patient.The records that you are about to access may contain highly sensitive health information, the redisclosure of which is protected by Article 27-F of the [facility] Public Health law. If you continue you may haveaccess to information: Regarding HIV / AIDS; Provided by facilities licensed or operated by the [facility] Office of Mental Health; or Provided by the [facility] Office for People With Developmental Disabilities. If such information is present, then the following [facility] mandated warning applies: This information has been disclosed to you from confidential records which are protected by state law. State law prohibits you from making any further disclosure of this information without the specific written consent of the person to whom it pertains, or as otherwise permitted by law. Any unauthorized further disclosure in violation of state law may result in a fine or [place] [facility] sentence or both. A general authorization for the release of medical or other information is NOT sufficient authorization for further disclosure. Allergies and Adverse Reactions Type Description Substance Reaction Status Data Source(s ) No Information No Information No Information eC W2 ([facility]) No Information No Information No Information eC W2 ([facility]) No Information No Information No Allergy eCW2 ( [facility] No Information No Information No Allergy eCW2 ( [facility]) No Information No Information No Allergy eCW2 ( [facility]) No Known Allergies No Known Allergies No known allergies eCW2 ([facility]uation[facility] [place]) No Information No Information No Allergy eCW2 ( [facility]) No Information No Information No Allergy eCW2 ( Open Door Information [facility] Medica l Available Center) Encounters Encounter Providers Location Date Indications Data Source(s ) [place] Open 07/10/2018 eCW 2 (Open Door [facility] 12:00:00 AM [facility] [place] Open 05/17/2018 eCW 2 (Open Door Door [facility] 12:00:00 AM [facility] [place] [place] Open 04/22/2018 eCW 2 (Open Door [facility] 12:00:00 AM [facility] [place] [place] [facility] [place] Open 03/25/2018 eCW 2 (Open Door [facility] 12:00:00 AM [facility] [place] [place] Open 03/06/2018 eCW 2 (Open Door Door Door 12:00:00 AM [facility] [place] [place] Door [place] Open 02/17/2018 eCW 2 (Open Door Door 12:00:00 AM [facility] [place] [place] Open 02/10/2018 eCW 2 (Open Door Door Door 12:00:00 AM [facility] [place] Open 02/10/2018 eCW 2 (Open Door Door Door 12:00:00 AM [facility] EDT Center) Immunizations Vaccine Date Status Description Data Source(s) No Known Immunizations completed eCW2 ([facility]) No Known Immunizations completed eCW2 ([facility]) No Known Immunizations completed eCW2 ([facility]) No Known Immunizations completed eCW2 ([facility]) No Known Immunizations completed eCW2 ([facility]) No Known Immunizations completed eCW2 ([facility]) No Known Immunizations completed eCW2 ([facility]) No Known Immunizations completed eCW2 ([facility]) Medications Medication Brand Start Product Dose Route Administrative Pharmacy [facility] Indications Reaction Description Data Name Date Form Instructions Instructions Source(s) Acetaminoph Oxycod 09/05/ TABLET complet Ever y 4 White en 325 MG / one 2019 ed Hours as Plai ns Oxycodone Hcl/Ac 12:00: needed for Hospital Hydrochlori etamin 00 AM Pain de 5 MG ophen EST Oral Tablet (Oxyco Oxycodone done-A Hcl/Acetami cetami nophen nophen (Oxycodone- 5-325) Acetaminoph 5 en 5-325) 5 Mg-325 Mg-325 Mg Mg Tablet Tablet Docusate Docusa 09/05/ CAPSULE 100 complet Three Times White Sodium 100 te 2019 mg ed A Day [place] MG Oral Sodium 12:00: Hospital Capsule (Dok) 00 AM [DOK] 100 Mg EST Docusate Capsul Sodium e (Dok) 100 Mg Capsule 30 ACTUAT Breo 02/19/ active 1 puff(s) e CW2 (Open fluticasone Ellipt 2018 Door furoate 0.1 a 100 12:00: Famil y MG/ACTUAT / mcg-25 00 AM Medic al vilanterol mcg/in EDT Center) 0.025 h MG/ACTUAT Dry Powder Inhaler [Breo] Breo Ellipta 100 mcg-25 mcg/inh Lisinopril lisino 02/19/ active 1 tab(s) eCW2 (Open 20 MG Oral pril 2017 Door Tablet 20 mg 12:00: Family lisinopril 00 AM Medical 20 mg EDT Center) atorvastati atorva 02/19/ active 1 tab(s ) eCW2 (Open n 40 MG statin 2018 Door Oral Tablet 40 mg 12:00: Famil y atorvastati 00 AM Medical n 40 mg EDT Center) fluticasone UNK 02/19/ active 1 puff(s) eCW2 (Open 100 mcg 2018 Door 12:00: Family 00 AM Medical EDT Center) atorvastati Atorva 12/04/ TABLET 10 mg complet Yomaira ly At White n 10 MG statin 2018 ed 2100 [place] Oral Tablet Calciu 12:00: Hosp ital [Lipitor] m 00 AM Atorvastati (Lipit EDT n Calcium or*) (Lipitor*) 10 Mg 10 Mg Tab, Tab, 10 Mg Oral 10 Mg Oral Lisinopril Lisino 12/04/ TABLET 10 mg complet Meliza y White 10 MG Oral pril 2018 ed [place] Tablet (Prini 12:00: Hospital Lisinopril alvina*) 00 AM (Prinivil*) 10 Mg EDT 10 Mg Tablet Tablet, 10 , 10 Mg Oral Mg Oral Ertapenem 12/04/ UNSPECIF 1 g complet Once W ivy Sodium 2017 IED ed [place] (Invanz) 1 12:00: Hospita l Gram 00 AM Vial.port, EDT 1 Gm Intravenous Infusion Thiamine TABLET 100 complet Daily White Mononitrate mg ed [place] ([facility] B-1) 100 Mg Tablet Unknown complet eCW2 (Ope n Medications ed [facility]) 0.4 ML Enoxap INJECTIO 40 mg complet Daily Wh ite Enoxaparin ale N ed [place] sodium 100 Sodium Hospita l MG/ML (Loven Prefilled ox Syringe Syring [Lovenox] e*) 40 Enoxaparin Mg/0.4 Sodium Ml (Lovenox Inj, Syringe*) 40 Mg 40 Mg/0.4 Subcut Ml Inj, 40 aneous Mg ly Subcutaneou sly Unknown complet eCW2 (Ope n Medications ed [facility]) Lisinopril Lisino TABLET 20 mg complet Daily White 10 MG Oral pril ed [place] Tablet ([facility] Lisinopril alvina*) (Prinivil*) 10 Mg 10 Mg Tablet Tablet, 20 , 20 Mg Oral Mg Oral Sertraline Sertra TABLET 100 complet Every N ight White 25 MG Oral line mg ed At Bedtime Noé ins Tablet Hcl Hospital [Zoloft] (Zolof Sertraline t*) 25 Hcl Mg (Zoloft*) Tablet 25 Mg Tablet Lisinopril Lisino TABLET 40 mg complet Daily White 20 MG Oral pril ed [place] Tablet ([facility] Lisinopril alvina*) (Prinivil*) 20 Mg 20 Mg Tablet Tablet Unknown complet eCW2 (Ope n Medications ed Door [facility]) Albuterol Albute 3 mL complet As Needed White 0.83 MG/ML rol ed [place] Inhalant Sulfat Hospital Solution e Albuterol ([place] Sulfate yuki (Ventolin Neb Neb 2.5MG/ 2.5MG/3ML*) 3ML*) 2.5 Mg/3 Ml 2.5 (0.083 %) Mg/3 Vial.neb Ml (0.083 %) Vial.n eb Tamsulosin Tamsul CAPSULE 0.4 complet At Bed time White hydrochlori osin mg ed [place] de 0.4 MG Hcl Hospital Oral (Floma Capsule x [Flomax] Capsul Tamsulosin e*) Hcl (Flomax 0.4 Mg Capsule*) Cap, 0.4 Mg Cap, 0.4 Mg 0.4 Mg Oral Oral Thiamine thiami active 1 tab(s) eCW 2 (Open 100 MG Oral ne 100 Door Tablet mg [facility] thiamine Medical 100 mg Center) levothyroxi levoth active 1 tab(s) eCW2 (Open ne 125 mcg yroxin Door (0.125 mg) e 125 [facility] mcg Medical (0.125 Center) mg) Sodium Sodium ENEMA 133 complet As Needed Wh ite Phosphate, Biphos mL ed [place] Dibasic phate/ Hospital 59.3 MG/ML Sodium / Sodium Phosph Phosphate, ate Monobasic (Fleet 161 MG/ML Enema Enema Adult* [Fleet ) 19 Enema] Gram-7 Sodium Gram/1 Biphosphate 18 Ml /Sodium Enem, Phosphate 133 Ml (Fleet Rectal Enema Adult*) 19 Gram-7 Gram/118 Ml Enem, 133 Ml Rectal Magnesium Magnes ORAL 30 mL complet Twice A D ay White Hydroxide ium SUSPENSI ed [place] 80 MG/ML Hydrox ON Hospital Oral rick Suspension (Milk Magnesium Of Hydroxide Magnes (Milk Of ia*) Magnesia*) 400 400 Mg/5 Ml Mg/5 Oral.susp, Ml 30 Ml Oral Oral.s custodial, 30 Ml Oral atorvastati Atorva TABLET 40 mg complet At Be dtime White n 40 MG statin ed [place] Oral Tablet [facility] Hospit al [Lipitor] m Atorvastati (Lipit n Calcium or*) (Lipitor*) 40 Mg 40 Mg Tab Tab lamotrigine Lamotr TABLET 100 complet Twice A Day White 100 MG Oral igine mg ed [place] Tablet ([facility] [Lamictal] jesusita*) Lamotrigine 100 Mg (Lamictal*) Tab 100 Mg Tab Melatonin TABLET 6 mg complet Daily Whit e (Melatonin ed [place] 5MG Hospital Tablet*) 5 Mg Tablet lamotrigine lamotr active 1 tab(s) eCW2 (Open 100 MG Oral igine Door Tablet 100 mg [facility] lamotrigine [facility] 100 mg [place]) Acetaminoph Acetam active 2 tablets eCW2 (Open en 325 mg inophe Door n 325 [facility]) fluticasone UNK active 1 puff(s) e CW2 (Open 100 mcg [facility]) Fluticasone 1 complet Daily Whit e /Vilanterol {Each ed [place] (Breo } Hospital Ellipta 100-25 Mcg Inh*) 100 Mcg-25 Mcg/Dose Blst.w.dev Unknown complet eCW2 (Ope n Medications [facility]) Budesonide/ AEROSOL, 1 complet Twice A Day White Formoterol SPRAY ed [facility] (Symbicort 160-4.5 Mcg Inh*) 160 Mcg-4.5 Mcg/Actuati on Hfa.aer.ad Sertraline sertra active 1 tab(s) e CW2 (Open 100 MG Oral line Door Tablet 100 mg [facility] sertraline [facility] 100 mg [place]) Unknown complet eCW2 (Ope n Medications ed [facility]) Sodium Sodium TABLET 1 g complet Three Times White Chloride Chlori ed A Day [place] 1000 MG de Hospital Oral Tablet (Sodiu Sodium m Chloride Chlori (Sodium de Chloride 1GRAM 1GRAM Tablet Tablet*) 1 *) 1 Gram Tab, 1 Gram Gm Oral Tab, 1 Gm Oral lamotrigine Lamotr 25 mg complet Daily W ivy 25 MG igine ed [place] Chewable ([facility] Tablet jesusita) [Lamictal] 25 Mg Lamotrigine Tb.chw (Lamictal) .dsp, 25 Mg 25 Mg Tb.chw.dsp, Oral 25 Mg Oral fluticasone UNK active 1 puff(s) e CW2 (Open 100 [facility]) sennosides, Sennos TABLET 2 complet At Bed time White [facility] 8.6 MG ides {Caps ed [place] Oral Tablet (Senok ule} Hospit al Sennosides ot (Senokot Tablet Tablets*) s*) 8.6 Mg 8.6 Mg Tablet, 2 Tablet Tab Oral , 2 Tab Oral Ipratropium Ipratr SOLUTION 1 complet Ever y 6 White [place] 0.2 opium {Each ed Hours as Pl ains MG/ML Bromid } needed for Hospit al Inhalant e For Sore Solution (Atrov Throat Ipratropium ent [place] Nebuli (Atrovent zer Nebulizer Soluti Solution*) on*) 0.2 Mg/Ml 0.2 (0.02 %) Mg/Ml Solution, 1 (0.02 Ea %) Inhalation Soluti on, 1 Ea Inhala tion Donepezil Donepe TABLET 10 mg complet At Bedt nasra White hydrochlori zil ed [place] de 10 MG Hcl Hospital Oral Tablet (Arice [Aricept] pt*) Donepezil 10 Mg Hcl Tab (Aricept*) 10 Mg Tab tiotropium UNK active 1 cap(s) eCW 2 (Open 18 [facility]) Levetiracet Leveti TABLET 1000 complet Every 12 White am 500 MG raceta mg ed Hours [place] Oral Tablet m Hospital [Keppra] (Keppr Levetiracet a am (Keppra 500MG 500MG Tab*) Tab*) 500 Mg Tab, 500 Mg 1000 Mg Tab, Oral 1000 Mg Oral 24 HR Nicoti PATCH 1 complet Daily White Nicotine ne {Patc ed [place] 0.583 MG/HR (Nicod h} Hospit al Transdermal erm Patch 14MG/2 Nicotine 4HR (Nicoderm Patch* 14MG/24HR ) 14 Patch*) 14 Mg/24 Mg/24 Hour Hour Patch.td24, Patch. 1 Patch td24, Transderm. 1 Patch Transd erm. Levothyroxi Levoth TABLET 56 ug complet Daily At White ne Sodium yroxin ed 0600 [place] 0.112 MG e Hospital Oral Tablet Sodium [Synthroid] (Synth Levothyroxi roid ne Sodium Tablet (Synthroid *) 112 Tablet*) Mcg 112 Mcg Tab, Tab, 56 Mcg 56 Mcg Oral Oral Levothyroxi Levoth TABLET 125 complet Daily White ne Sodium yroxin ug ed [place] 0.125 MG e Hospital Oral Tablet Sodium [Synthroid] (Levox Levothyroxi yl ne Sodium 125MCG (Levoxyl Tab*) 125MCG 125 Tab*) 125 Mcg Mcg Tablet Tablet Thiamine thiami active 1 tab(s) eCW 2 (Open 100 MG Oral ne 100 Door Tablet mg [facility] thiamine Medical 100 mg [place]) Unknown complet eCW2 (Ope n Medications ed Door [facility]) Docusate Docusa CAPSULE 100 complet Three Ti mes White Sodium 100 te mg ed A Day [place] MG Oral Sodium Hospital Capsule (Colac Docusate e*) Sodium 100 Mg (Colace*) Cap, 100 Mg Cap, 100 Mg 100 Mg Oral Oral 120 ACTUAT Ipratr AEROSOL 4 g complet Three Times White Albuterol opium/ ed A Day-Before [place] 0.1 [facility] MG/ACTUAT / rol Ipratropium Sulfat [place] e 0.02 (Combi MG/ACTUAT vent Metered Respim Dose at Inhaler Inhal [Combivent] [place]) Ipratropium 20 /Albuterol Mcg-10 Sulfate 0 (Combivent Mcg/Ac Respimat tuatio Inhal n [place]) 20 Aer.w. Mcg-100 adap,4 Mcg/Actuati Gm on Inhala Aer.w.adap, tion 4 Gm Inhalation Albuterol albute active 3 mL eCW2 ( Open 0.83 MG/ML rol Door Inhalant 2.5 Family Solution mg/3 Medical albuterol mL [place]) 2.5 mg/3 mL (0.083 (0.083%) %) lamotrigine lamotr active 1 tab(s) eCW2 (Open 100 MG Oral igine Door Tablet 100 mg [facility] lamotrigine Medical 100 mg [place]) tiotropium UNK active 1 cap(s) eCW 2 (Open 18 mcg Door [facility]) Sertraline sertra active 1 tab(s) e CW2 (Open 100 MG Oral line Door Tablet 100 mg [facility] sertraline Medical 100 mg [place]) Acetaminoph TABLET 325 complet Every 4 White en (Tylenol mg ed Hours [place] 325MG Hospital Tablets*) 325 Mg Tab, 325 Mg Oral levothyroxi levoth active 1 tab(s) eCW2 (Open ne 125 mcg yroxin Door (0.125 mg) e 125 Family mcg Medical (0.125 Center) mg) quetiapine Quetia TABLET 12.5 complet At Bedt nasra White 25 MG Oral pine mg ed [place] Tablet [facility] [Seroquel] te Quetiapine (Seroq Fumarate u (Seroquel Tablet Tablet*) 25 *) 25 Mg Tab, Mg 12.5 Mg Tab, Oral 12.5 Mg Oral pantoprazol Pantop 40 mg complet Daily W ivy e 40 MG razole ed [place] Oral Sodium Hospital Granules (Memo [Protonix] nix) Pantoprazol 40 Mg e Sodium Suspdr (Protonix) .pkt, 40 Mg 40 Mg Suspdr.pkt, Oral 40 Mg Oral Nicotine UNK active Apply once eCW 2 (Open patches daily Door 21mg/24 [facility]) Insurance Providers Payer name Policy type Policy ID Covered Covered democrat's Policy P tawana / Coverage democrat ID relationship to Mohan Inf ormation type mohan [facility] [id number] CARE OPTIONS MEDICARE [id number] SP [id number] [facility] [id number] C[employer] MEDICARE [id number] SP [id number] A Problems, Conditions, and Diagnoses Code Display Name Description Problem Effective Data Type Dates Source(s) [id number] History of Personal history Problem 02/18/2018 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 kelley uncertain uncertain [facility] Medical behavior behavior Center) (situation) R91.1 Lung nodule < 6cm Lung nodule < 6cm Problem 02/18/2018 eCW2 (Open on CT on CT 12:00:00 AM [facility]) [id number] Noncompliance Nonadherence to Problem 02/18/2018 eCW2 ( Open with medication medical treatment 12:00:00 AM D oor Family regimen (finding) [facility]) E03.8 Other specified Other specified Problem 02/18/2018 eCW2 (Open hypothyroidism hypothyroidism 12:00:00 AM [facility]) 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 12:00:00 AM [facility] [place]) J44.9 Chronic Chronic Problem 02/10/2018 eCW2 (Open obstructive obstructive 12:00:00 AM [facility] pulmonary pulmonary EDT Medical disease, disease, Center) unspecified COPD unspecified COPD type type Surgeries/Procedures Procedure Description Date Indications Data Source(s) Portable x-ray of Portable x-ray of 09/05/2018 [place] chest chest 12:00:00 AM Hospital EST Portable x-ray of Portable x-ray of 09/05/2018 [place] chest chest 12:00:00 AM Hospital EST Portable x-ray of Portable x-ray of 09/04/2018 [place] chest chest 12:00:00 AM Hospital EST Portable x-ray of Portable x-ray of 09/04/2018 [place] chest chest 12:00:00 AM Hospital EST Portable x-ray of Portable x-ray of 09/03/2018 [place] chest chest 12:00:00 AM Hospital EST Portable x-ray of Portable x-ray of 09/03/2018 [place] chest chest 12:00:00 AM Hospital EST Pulse Oximetry 02/10/2018 eCW2 (Open Do or 12:00:00 AM [facility] EDT Center) RVW MEDS BY RX/DR IN 02/10/2018 eCW2 (O pen Door RCRD 12:00:00 AM [facility] EDT Center) Federally qualified 02/10/2018 eCW2 (Op en [facility] ([facility]) 12:00:00 AM [facility] Medical visit, established EDT Center) patient; a medically-necessary, etuj-sa-umsn encounter (one-on-one) between an established patient and a [facility] practitioner during which time one or more [facility] services are rendered and includes a typical bundle of medicare-covered services that would be furnished salesperson men's and boys' clothing to a patient receiving a [facility] visit No Known procedures No Known procedures e CW2 ([facility]) No Known procedures No Known procedures e CW2 ([facility]) No Known procedures No Known procedures e CW2 (Open [facility]) No Known procedures No Known procedures e CW2 ([facility]) No Known procedures No Known procedures e CW2 ([facility]) No Known procedures No Known procedures e CW2 ([facility]) No Known procedures No Known procedures e CW2 ([facility]) Results ID Date Data Source [id number] 04/20/2020 11:00:00 AM EDT [facility] Name Value Range Interpretation Description Data Sup porting Code Source(s) Document(s ) SARS [facility] coronavirus 2 RNA [facility] and reported by [facility]. ID Date Data Source [id number] 02/16/2020 11:29:00 AM EDT [facility] Name Value Range Interpretation Description Data Sup porting Code Source(s) Document(s ) SARS [facility] CORONAVIRUS 2 RNA This lab was ordered by [facility] and reported by [facility]. ID Date Data Source [id number] 12/17/2019 08:10:00 AM EDT [facility] Name Value Range Interpretation Description Data Sup porting Code Source(s) Document(s ) SARS [facility] CORONAVIRUS 2 RNA This lab was ordered by [facility] and reported by [facility]. ID Date Data Source [id number] 11/25/2019 02:30:00 AM EDT [facility] Name Value Range Interpretation Description Data Sup porting Code Source(s) Document(s ) SARS [facility] CORONAVIRUS 2 RNA This lab was ordered by [facility] and reported by [facility]. ID Date Data Source [id number] 09/05/2018 06:32:00 AM [facility] Hospital Name Value Range Interpretation Description Data Sup porting Code Source(s) Document(s ) Aspartate 27 U/L 10-48 AST [place] aminotransferase [place] [Enzymatic Hospital activity/volume] in Serum or Plasma ID Date Data Source [id number] 09/05/2018 06:32:00 AM [facility] Name Value Range Interpretation Description Data Sup porting Code Source(s) Document(s ) Alanine 15 U/L 8-35 ALANINE [place] aminotransferase TRANSFERASE [place] [Enzymatic Hospital activity/volume] in Serum or Plasma ID Date Data Source [id number] 09/05/2018 06:32:00 AM [facility] Name Value Range Interpretation Description Data Sup porting Code Source(s) Document(s ) Alkaline 80 U/L 41-147 ALKALINE [place] phosphatase PHOSPHATASE Hospital [Enzymatic activity/volum e] in Serum or Plasma ID Date Data Source [id number] 09/05/2018 06:32:00 AM [facility] Name Value Range Interpretation Description Data Sup porting Code Source(s) Document(s ) Bilirubin. 0.6 mg/dL 0.3-1.2 TOTAL [place] total BILIRUBIN Hospital [Mass/volu me] in Serum or Plasma ID Date Data Source [id number] 09/05/2018 06:32:00 AM [facility] Value Range Interpretation Description Data Sup porting Code Source(s) Document(s ) Albumin/Gl 2.0 1.0-2.1 ALBUMIN/GLOBULI [place] obulin N RATIO Hospital [Mass Ratio] in Serum or Plasma ID Date Data Source [id number] 09/05/2018 06:32:00 AM [facility] Name Value Range Interpretation Description Data Sup porting Code Source(s) Document(s ) Albumin 3.8 g/dL 3.4-4.8 ALBUMIN [place] [Mass/volum Hospital e] in Serum or Plasma ID Date Data Source [id number] 09/05/2018 06:32:00 AM [facility] Hospital Name Value Range Interpretation Description Data Sup porting Code Source(s) Document(s ) Protein 5.7 g/dL 5.7-8.2 TOTAL PROTEIN [place] [Mass/volum Hospital e] in Serum or Plasma ID Date Data Source [id number] 09/05/2018 06:32:00 AM [facility] Hospital Name Value Range Interpretation Description Data Sup porting Code Source(s) Document(s ) Calcium 8.5 mg/dL 8.3-10.6 CALCIUM [place] [Mass/volum Hospital e] in Serum or Plasma ID Date Data Source [id number] 09/05/2018 06:32:00 AM [facility] Name Value Range Interpretation Description Data Sup porting Code Source(s) Document(s ) Urea 24.6 6.0-20.0 Above high normal BUN/CREATININE [place] nitrogen/C RATIO Hospital reatinine [Mass Ratio] in Serum or Plasma ID Date Data Source [id number] 09/05/2018 06:32:00 AM [facility] Hospital Name Value Range Interpretation Description Data Sup porting Code Source(s) Document(s ) Creatinine 0.6 0.6-1.1 CREATININE [place] [Mass/volume] mg/dL Hospital in Serum or Plasma ID Date Data Source [id number] 09/05/2018 06:32:00 AM [facility] Name Value Range Interpretation Description Data Sup porting Code Source(s) Document(s ) Urea 15 mg/dL 6-20 BLOOD UREA [place] nitrogen NITROGEN Hospital [Mass/volume ] in Serum or Plasma ID Date Data Source [id number] 09/05/2018 06:32:00 AM [facility] Value Range Interpretation Code Description Data Darling rce(s) Supporting Document(s ) Anion gap in 11 6-18 ANION GAP [place] Serum or Hospital Plasma ID Date Data Source [id number] 09/05/2018 06:32:00 AM [facility] Hospital Name Value Range Interpretation Description Data Sup porting Code Source(s) Document(s ) Carbon 31 mmol/L 23-31 CARBON DIOXIDE [place] dioxide, Hospital total [Moles/vol ume] in Serum or Plasma ID Date Data Source [id number] 09/05/2018 06:32:00 AM [facility] Name Value Range Interpretation Description Data Sup porting Code Source(s) Document(s ) Chloride 99 mmol/L 98-107 CHLORIDE [place] [Moles/volum Hospital e] in Serum or Plasma ID Date Data Source [id number] 09/05/2018 06:32:00 AM [facility] Name Value Range Interpretation Description Data Sup porting Code Source(s) Document(s ) Potassium 3.9 3.5-5.3 POTASSIUM [place] [Moles/volume mmol/L Hospital ] in Serum or Plasma ID Date Data Source [id number] 09/05/2018 06:32:00 AM [facility] Name Value Range Interpretation Description Data Sup porting Code Source(s) Document(s ) Sodium 137 136-145 SODIUM [place] [Moles/vol mmol/L Hospital ume] in Serum or Plasma ID Date Data Source [id number] 09/05/2018 06:32:00 AM [facility] Name Value Range Interpretation Description Data Sup porting Code Source(s) Document(s ) Glucose 92 mg/dL 74-106 GLUCOSE [place] [Mass/volum Hospital e] in Serum or Plasma ID Date Data Source [id number] 09/05/2018 06:32:00 AM [facility] Name Value Range Interpretation Code Description Data Darling rce(s) Supporting Document(s ) 0.0 % 0-0.2 NUCLEATED RBCS [place] (AUTO DIFF%)DIS Hospital ID Date Data Source [id number] 09/05/2018 06:32:00 AM [facility] Name Value Range Interpretation Description Data Sup porting Code Source(s) Document(s ) Differential AUTOMATED DIFF TYPE [place] cell count Hospital method - Blood ID Date Data Source [id number] 09/05/2018 06:32:00 AM [facility] Name Value Range Interpretation Description Data Sup porting Code Source(s) Document(s ) Immature 0.04 0-0.3 IMM GRANS [place] granulocytes 10*3/uL (AUTO DIFF#) Hospital [#/volume] in Blood by Automated count ID Date Data Source [id number] 09/05/2018 06:32:00 AM [facility] Hospital Name Value Range Interpretation Description Data Sup porting Code Source(s) Document(s ) Basophils 0.01 0.0-0.1 BASOPHILS [place] [#/volume] 10*3/uL (AUTO DIFF #) Hospital in Blood by Automated count ID Date Data Source [id number] 09/05/2018 06:32:00 AM [facility] Value Range Interpretation Description Data Sup porting Code Source(s) Document(s ) Eosinophils 0.11 0.0-0.6 EOSINOPHILS [place] [#/volume] in 10*3/uL (AUTO DIFF #) [place] Blood by Hospital Automated count ID Date Data Source [id number] 09/05/2018 06:32:00 AM [facility] Value Range Interpretation Description Data Sup porting Code Source(s) Document(s ) Monocytes 1.06 0.0-1.2 MONOCYTES [place] [#/volume] 10*3/uL (AUTO DIFF #) Hospital in Blood by Automated count ID Date Data Source [id number] 09/05/2018 06:32:00 AM [facility] Hospital Name Value Range Interpretation Description Data Sup porting Code Source(s) Document(s ) Lymphocytes 1.18 1.2-3.5 Below low normal LYMPHOCYTES [place] [#/volume] in 10*3/uL (AUTO DIFF #) [place] Blood by Hospital Automated count ID Date Data Source [id number] 09/05/2018 06:32:00 AM [facility] Name Value Range Interpretation Description Data Sup porting Code Source(s) Document(s ) Neutrophils 3.44 1.5-6.6 NEUTROPHILS [place] [#/volume] in 10*3/uL (AUTO DIFF #) [place] Blood by Hospital Automated count ID Date Data Source [id number] 09/05/2018 06:32:00 AM [facility] Name Value Range Interpretation Description Data Sup porting Code Source(s) Document(s ) Nucleated 0.0 % 0-0.2 NUCLEATED RBCS [place] erythrocytes/1 (AUTO DIFF%) Hospital 00 leukocytes [Ratio] in Blood by Automated count ID Date Data Source [id number] 09/05/2018 06:32:00 AM [facility] Value Range Interpretation Description Data Sup porting Code Source(s) Document(s ) Immature 0.7 % 0-0.5 Above high normal IMM GRANS (AUTO [place] granulocytes/1 DIFF%) Hospital 00 leukocytes in Blood by Automated count ID Date Data Source [id number] 09/05/2018 06:32:00 AM [facility] Value Range Interpretation Description Data Sup porting Code Source(s) Document(s ) Basophils/100 0.2 % 0-1.0 BASOPHILS (AUTO [place] leukocytes in DIFF %) [facility] Blood by Automated count ID Date Data Source [id number] 09/05/2018 06:32:00 AM [facility] Name Value Range Interpretation Description Data Sup porting Code Source(s) Document(s ) Eosinophils/10 1.9 % 0-6.0 EOSINOPHILS [place] 0 leukocytes (AUTO DIFF %) Hospital in Blood by Automated count ID Date Data Source [id number] 09/05/2018 06:32:00 AM [facility] Value Range Interpretation Description Data Sup porting Code Source(s) Document(s ) Monocytes/100 18.2 % 4.0-12.0 Above high normal MONOCYTES [place] leukocytes in (AUTO DIFF %) Hospital Blood by Automated count ID Date Data Source [id number] 09/05/2018 06:32:00 AM [facility] Name Value Range Interpretation Description Data Sup porting Code Source(s) Document(s ) Lymphocytes/1 20.2 % 20.0-48. LYMPHOCYTES [place] 00 leukocytes 0 (AUTO DIFF %) Hospital in Blood by Automated count ID Date Data Source [id number] 09/05/2018 06:32:00 AM [facility] Name Value Range Interpretation Description Data Sup porting Code Source(s) Document(s ) Neutrophils/1 58.8 % 40.0-75. NEUTROPHILS [place] 00 leukocytes 0 (AUTO DIFF %) Hospital in Blood by Automated count ID Date Data Source [id number] 09/05/2018 06:32:00 AM [facility] Value Range Interpretation Description Data Sup porting Code Source(s) Document(s ) Platelet 10.4 fL 9.6-12.8 MEAN PLATELET [place] mean volume VOLUME Hospital [Entitic volume] in Blood by Automated count ID Date Data Source [id number] 09/05/2018 06:32:00 AM [facility] Name Value Range Interpretation Description Data Sup porting Code Source(s) Document(s ) Platelets 186 150-400 PLATELET COUNT [place] [#/volume] 10*3/uL Hospital in Blood by Automated count ID Date Data Source [id number] 09/05/2018 06:32:00 AM [facility] Name Value Range Interpretation Description Data Sup porting Code Source(s) Document(s ) Erythrocyte 15.6 % 11.5-14. Above high normal RED CELL [place] distribution 5 DISTRIBUTION [place] width [Ratio] WIDTH Hospital by Automated count ID Date Data Source [id number] 09/05/2018 06:32:00 AM [facility] Value Range Interpretation Description Data Sup porting Code Source(s) Document(s ) Erythrocyte mean 31.7 31.0-36. MEAN [place] corpuscular g/dL 0 CORPUSCULAR [place] hemoglobin HGB CONCEN Hospital concentration [Mass/volume] by Automated count ID Date Data Source [id number] 09/05/2018 06:32:00 AM [facility] Value Range Interpretation Description Data Sup porting Code Source(s) Document(s ) Erythrocyte 28.3 pg 27.0-34. MEAN [place] mean 0 CORPUSCULAR [place] corpuscular HEMOGLOBIN Hospital hemoglobin [Entitic mass] by Automated count ID Date Data Source [id number] 09/05/2018 06:32:00 AM [facility] Value Range Interpretation Description Data Sup porting Code Source(s) Document(s ) Erythrocyte 89.1 fL 80.0-96. MEAN [place] mean 0 CORPUSCULAR [place] corpuscular VOLUME Hospital volume [Entitic volume] by Automated count ID Date Data Source [id number] 09/05/2018 06:32:00 AM [facility] Value Range Interpretation Description Data Sup porting Code Source(s) Document(s ) Hematocrit 36.9 % 35.0-45.0 HEMATOCRIT [place] [Volume Hospital Fraction] of Blood by Automated count ID Date Data Source [id number] 09/05/2018 06:32:00 AM [facility] Value Range Interpretation Description Data Sup porting Code Source(s) Document(s ) Hemoglobin 11.7 11.8-15. Below low normal HEMOGLOBIN [place] [Mass/volume] g/dL 3 Hospital in Blood ID Date Data Source [id number] 09/05/2018 06:32:00 AM [facility] Value Range Interpretation Description Data Sup porting Code Source(s) Document(s ) Erythrocytes 4.14 3.80-5.1 RED BLOOD [place] [#/volume] in 10*6/uL 0 CELL COUNT [place] Blood by [facility] Automated count ID Date Data Source [id number] 09/05/2018 06:32:00 AM [facility] Name Value Range Interpretation Description Data Sup porting Code Source(s) Document(s ) Leukocytes 5.8 4.0-10.0 WHITE BLOOD [place] [#/volume] in 10*3/uL CELL COUNT [facility] Blood by Automated count ID Date Data Source [id number] 09/03/2018 11:47:00 AM [facility] Candy Catcher: [facility] Name Value Range Interpretation Description Data Sup porting Code Source(s) Document(s ) Glucose 129 74-106 Above high normal METER GLUCOSE [place] [Mass/volume] mg/dL Hospital in Capillary blood by Glucometer ID Date Data Source [id number] 08/14/2018 12:10:00 PM [facility] THERAPEUTIC RANGES: UNFRACTIONATED HEPARIN THERAPY: 60-90 SE CONDS ARGATROBAN THERAPY: 49-99 SECONDS Name Value Range Interpretation Description Data Sup porting Code Source(s) Document(s ) aPTT in 33.1 s 28.6-39. ACT. PART. White Platelet poor 4 THROMBOPLASTIN [place] plasma by TIME Hospital Coagulation assay ID Date Data Source [id number] 08/14/2018 12:10:00 PM [facility] THERAPEUTIC RANGE FOR STANDARD ORAL ANTICOAGULANT THERAPY: 2.0-3.0 THERAPEUTIC RANGE FOR HIGH DOSE ORAL ANTICOAGULANT THERAPY (MECHANICAL HEART VALVE REPLACEMENT): 2.5-3.5 Name Value Range Interpretation Description Data Sup porting Code Source(s) Document(s ) INR in 0.9 INTERNATIONAL [place] Platelet poor NORMALIZED RATIO [facility] plasma by Coagulation assay ID Date Data Source [id number] 08/14/2018 12:10:00 PM [facility] Name Value Range Interpretation Description Data Sup porting Code Source(s) Document(s ) PT panel - 9.9 s 9.4-13.0 PROTHROMBIN [place] Platelet poor TIME Hospital plasma by Coagulation assay ID Date Data Source [id number] 08/14/2018 12:10:00 PM EST [facility] Name Value Range Interpretation Description Data Sup porting Code Source(s) Document(s ) Cells 100 DIFF CELLS [place] Counted COUNTED Hospital Total [#] in Blood ID Date Data Source [id number] 08/14/2018 12:10:00 PM [facility] Value Range Interpretation Code Description Data Darling rce(s) Supporting Document(s ) NORMAL PLATELET COMMENT [facility] ID Date Data Source [id number] 08/14/2018 12:10:00 PM [facility] Value Range Interpretation Code Description Data Darlnig rce(s) Supporting Document(s ) OCC ANISOCYTOSIS [facility] ID Date Data Source [id number] 08/14/2018 12:10:00 PM [facility] Value Range Interpretation Description Data Sup porting Code Source(s) Document(s ) Eosinophils 0.10 0.0-0.5 EOSINOPHILS [place] [#/volume] in 10*3/uL (MAN DIFF #) [place] Blood by Hospital Manual count ID Date Data Source [id number] 08/14/2018 12:10:00 PM [facility] Name Value Range Interpretation Description Data Sup porting Code Source(s) Document(s ) Monocytes 0.26 0.0-1.0 MONOCYTES (MAN [place] [#/volume] 10*3/uL DIFF #) Hospital in Blood by Manual count ID Date Data Source [id number] 08/14/2018 12:10:00 PM [facility] Name Value Range Interpretation Description Data Sup porting Code Source(s) Document(s ) Lymphocytes 1.09 1.2-3.5 Below low normal LYMPHOCYTES [place] [#/volume] in 10*3/uL (MAN DIFF #) [place] Blood by Hospital Manual count ID Date Data Source [id number] 08/14/2018 12:10:00 PM EST [place] Hospital Name Value Range Interpretation Description Data Sup porting Code Source(s) Document(s ) Neutrophils 3.74 1.5-6.6 NEUTROPHILS [place] [#/volume] in 10*3/uL (MAN DIFF #) [place] Blood by [facility] Manual count ID Date Data Source [id number] 08/14/2018 12:10:00 PM [facility] Value Range Interpretation Description Data Sup porting Code Source(s) Document(s ) Eosinophils/100 2 % 0-6.0 EOSINOPHILS [place] leukocytes in Hospital Blood by Manual count ID Date Data Source [id number] 08/14/2018 12:10:00 PM [facility] Value Range Interpretation Description Data Sup porting Code Source(s) Document(s ) Monocytes/100 5 % 2.0-12.0 MONOCYTES [place] leukocytes in Hospital Blood by Manual count ID Date Data Source [id number] 08/14/2018 12:10:00 PM [facility] Value Range Interpretation Description Data Sup porting Code Source(s) Document(s ) Variant 2 % 0-2.0 ATYPICAL [place] lymphocytes/10 LYMPHOCYTES Hospital 0 leukocytes in Blood by Manual count ID Date Data Source [id number] 08/14/2018 12:10:00 PM [facility] Name Value Range Interpretation Description Data Sup porting Code Source(s) Document(s ) Lymphocytes/10 19 % 20.0-48.0 Below low normal LYMPHOCYTES [place] 0 leukocytes Hospital in Blood by Manual count ID Date Data Source [id number] 08/14/2018 12:10:00 PM [facility] Name Value Range Interpretation Description Data Sup porting Code Source(s) Document(s ) Band form 2 % 0-6.0 BANDS [place] neutrophils/100 Hospital leukocytes in Blood ID Date Data Source [id number] 08/14/2018 12:10:00 PM [facility] Name Value Range Interpretation Description Data Sup porting Code Source(s) Document(s ) Neutrophils/10 70 % 40.0-75. SEGMENTED [place] 0 leukocytes 0 NEUTROPHILS Hospital in Blood by Manual count ID Date Data Source [id number] 08/14/2018 12:10:00 PM [facility] Name Value Range Interpretation Code Description Data Darling rce(s) Supporting Document(s ) 08/14/2018 ARRIVAL TIME [place] 11:32 Hospital Procedure Social History Code Duration Value Status Description Data Source(s ) Smoking Unknown if ever completed Unknown if ever eCW2 ([facility] smoked smoked [facility]) Smoking Unknown if ever completed Unknown if ever eCW2 ([facility] smoked smoked [facility]) Smoking Unknown if ever completed Unknown if ever eCW2 ([facility] smoked smoked [facility]) Smoking Unknown if ever completed Unknown if ever eCW2 ([facility] smoked smoked [facility]) Smoking Unknown if ever completed Unknown if ever eCW2 ([facility] smoked smoked [facility]) Smoking Former Smoker completed Former Smoker eCW2 ([facility]) Smoking Unknown if ever completed Unknown if ever eCW2 ([facility] smoked smoked [facility]) Smoking Unknown if ever completed Unknown if ever eCW2 ([facility] smoked smoked [facility]) Smoking Ex-smoker completed Ex-smoker (finding) [place] (finding) Hospital Vital Signs ID Date Data Source [id number] Name Value Range Interpretation Code Description Data Source(s) Diastolic blood 75 mm[Hg] 75 mm[Hg] eCW2 ([facility] pressure [facility]) Systolic blood 128 mm[Hg] 128 mm[Hg] eCW2 ([facility] pressure [facility]) Body mass index 26.31 kg/m2 26.31 kg/m2 eCW2 ([facility] (BMI) [Ratio] [facility]) Body weight 128.8 128.8 [lb_av] eCW2 ([facility] Measured [lb_av] [facility]) Body height 58.66 58.66 [in_us] eCW2 ([facility] [in_us] [facility]) Body temperature 98.4 [degF] 98.4 [degF] eCW2 ( [facility]) Patient Treatment Plan of Care Planned Activity Planned Date Details Description Data Source (s) Acetaminophen 325 MG / 09/05/2018 12:00:00 [facility] Oxycodone Hydrochloride 5 AM EST MG Oral Tablet Docusate Sodium 100 MG 09/05/2018 12:00:00 [facility] Oral Capsule [DOK] AM EST fluticasone 100 mcg 02/19/2018 12:00:00 e CW2 ([facility] AM EDT [facility]) 30 ACTUAT fluticasone 02/19/2018 12:00:00 eCW2 ([facility] furoate 0.1 MG/ACTUAT / AM EDT [facility]) MG/ACTUAT Dry Powder Inhaler [Breo] Lisinopril 20 MG Oral 02/19/2018 12:00:00 eCW2 ([facility] Tablet AM [facility]) atorvastatin 40 MG Oral 02/19/2018 12:00:00 eCW2 ([facility] Tablet AM [facility]) Lisinopril 10 MG Oral 12/04/2017 12:00:00 [facility] Tablet AM EDT Ertapenem Sodium (Invanz) 12/04/2017 12:00:00 [facility] 1 Gram Vial.port, 1 Gm AM EDT Intravenous Infusion atorvastatin 10 MG Oral 12/04/2017 12:00:00 [facility] Tablet [Lipitor] AM EDT Nicotine patches 21mg/24 eCW 2 ([facility] hour [facility]) fluticasone 100 mcg eCW2 ([facility]) lamotrigine 100 MG Oral eCW2 ([facility] Tablet [facility]) Thiamine 100 MG Oral eCW2 ([facility] Tablet [facility]) tiotropium 18 mcg eCW2 ([facility]) levothyroxine 125 mcg eCW2 ( [facility] (0.125 mg) [facility]) Albuterol 0.83 MG/ML eCW2 ([facility] Inhalant Solution [facility]) Sertraline 100 MG Oral eCW2 ([facility] Tablet [facility]) Thiamine 100 MG Oral eCW2 ([facility] Tablet [facility]) tiotropium 18 mcg eCW2 ([facility]) Sertraline 100 MG Oral eCW2 ([facility] Tablet [facility]) lamotrigine 100 MG Oral eCW2 ([facility] Tablet [facility]) levothyroxine 125 mcg eCW2 ( [facility] (0.125 mg) [facility]) fluticasone 100 mcg eCW2 ([facility]) Tamsulosin hydrochloride [facility] 0.4 MG Oral Capsule [Flomax] Sodium Chloride 1000 MG [facility] Oral Tablet Sodium Phosphate, Dibasic [facility] 59.3 MG/ML / Sodium Phosphate, Monobasic 161 MG/ML Enema [Fleet Enema] sennosides, [facility] 8.6 MG [facility] Oral Tablet quetiapine 25 MG Oral [facility] Tablet [Seroquel] pantoprazole 40 MG Oral [facility] Granules [Protonix] [address] [facility] MG/HR Transdermal Patch Magnesium Hydroxide 80 [facility] MG/ML Oral Suspension Lisinopril 10 MG Oral [facility] Tablet Levothyroxine Sodium [facility] 0.112 MG Oral Tablet [Synthroid] Levetiracetam 500 MG Oral [facility] Tablet [Keppra] lamotrigine 25 MG [facility] Chewable Tablet [Lamictal] 120 ACTUAT Albuterol 0.1 [facility] MG/ACTUAT / Ipratropium [place] 0.02 MG/ACTUAT Metered Dose Inhaler [Combivent] Ipratropium [place] 0.2 [facility] MG/ML Inhalant Solution 0.4 ML Enoxaparin sodium [facility] 100 MG/ML Prefilled Syringe [Lovenox] Docusate Sodium 100 MG [facility] Oral Capsule Acetaminophen (Tylenol [facility] 325MG Tablets*) 325 Mg Tab, 325 Mg Oral Thiamine Mononitrate [facility] (Vitamin B-1) 100 Mg Tablet Sertraline 25 MG Oral [facility] Tablet [Zoloft] Melatonin (Melatonin 5MG i [facility] Tablet*) 5 Mg Tablet Lisinopril 20 MG Oral [facility] Tablet Levothyroxine Sodium [facility] 0.125 MG Oral Tablet [Synthroid] lamotrigine 100 MG Oral [facility] Tablet [Lamictal] Fluticasone/Vilanterol [facility] (Breo Ellipta 100-25 Mcg Inh*) 100 Mcg-25 Mcg/Dose Blst.w.dev Donepezil hydrochloride [facility] 10 MG Oral Tablet [Aricept] Budesonide/Formoterol [facility] Fumarate (Symbicort 160-4.5 Mcg Inh*) 160 Mcg-4.5 Mcg/Actuation Hfa.aer.ad atorvastatin 40 MG Oral [facility] Tablet [Lipitor] Albuterol 0.83 MG/ML [facility] Inhalant Solution
[2020-05-18] MEDS ORDERED: methylPREDNISolone NA SUCC 125 MG/2 ML VIAL IVPUSH ONE (06:46)
[2020-05-18] MEDS ORDERED: methylPREDNISolone NA SUCC 125 MG/2 ML VIAL ONE (06:47)
--- NOTE | 2020-05-18 07:22 | PDOC ---
*Physical Exam - Vital Signs Last Vital Signs Temp Pulse Resp BP Pulse Ox 98.8 F 102 H 20 118/87 94 L 05/18/20 06:05 05/18/20 07:12 05/18/20 07:12 05/18/20 07:12 05/18/20 07:12 - Physical Exam 05/18/20 07:[address] Tejada 7 AM. Patient stable. Probable acute exacerbation COPD. No fever/chills, increased shortness of breath. EKG shows normal sinus rhythm, rate of 80, left atrial enlargement but no other abnormalities. No ST-T wave changes. No change. Chest x-ray: Typical changes of COPD, no acute infiltrate, no effusions, no change from prior study April 20, 2020. Labs pending 05/18/20 10:47 Labs show no significant abnormalities other than mildly elevated BUN. Fluids and another nebulizer were administered. Vital signs are stable. O2 saturation is 90 to 92% on 2 L, which the patient uses at home as well. Chest x-ray is clear. EKG no significant abnormalities as noted above. Respiratory rate is 18 and unlabored. Respiratory status appears stable. Continue prednisone and home nebulizers. Return to ER if worse. Otherwise follow-up with primary physician and environmental control administrator 2 to 3 days. 05/18/20 12:28 Discharged with daughter, fully ambulatory, in no distress respiratory or otherwise, to follow-up as directed ED Treatment Course - LABORATORY CBC & Chemistry Diagram: 05/18/20 06:15 05/18/20 06:15 - Medications Given in the ED: ED Medications Discontinued Medications Generic Name Dose Route Start Last Admin Trade Name Camq PRN Reason Stop Dose Admin Albuterol/Ipratropium 1 amp 05/18/20 06:14 05/18/20 06:24 Duoneb - NEB 05/18/20 06:15 1 amp ONCE ONE Administration Methylprednisolone Sodium Succinate 125 mg 05/18/20 06:46 05/18/20 06:48 Solu-Medrol - IVPUSH 05/18/20 06:47 125 mg ONCE ONE Administration Discharge - Discharge Information Problems reviewed: Yes Clinical Impression/Diagnosis: COPD (chronic obstructive pulmonary disease) Qualifiers: COPD type: COPD with acute exacerbation Qualified Code(s): J44.1 - Chronic obstructive pulmonary disease with (acute) exacerbation Condition: Improved Disposition: HOME - Admission No - Additional Discharge Information Prescriptions: Methylprednisolone [Medrol Dose [place]] 4 mg PO ASDIR #21 tablet - Follow up/Referral Referrals: Florence Galindo [Primary Care Provider] - 2 Days - Patient Discharge Instructions Patient Printed Discharge Instructions: DI for Chronic Obstructive Pulmonary Disease Additional Instructions: Short course of prednisone recommended, along with usual nebulizer treatments and inhalers. Return to ER if breathing is worse despite following therapeutic recommendations. Otherwise follow-up with primary physician and pulmonary physician within 2 to 3 days. Try to drink more fluids to maintain your hydration. - Post Discharge Activity
[2020-05-18 08:11] LABS: BASO % 0.9 % (0-2.0); EOS % 8.5 % (0-4.5); HEMATOCRIT 37.3 % (32.4-45.2); HEMOGLOBIN 12.5 GM/dL (10.7-15.3); LYMPH % 21.7 % (8-40); MCH 30.3 pg (25.7-33.7); MCHC 33.5 g/dl (32.0-36.0); MEAN CELL VOLUME 90.5 fl (80-96); MEAN PLT VOLUME 8.4 fl (7.5-11.1); MONO % 13.7 % (3.8-10.2); NEUT % 55.2 % (42.8-82.8); PLATELET COUNT 179 K/MM3 (134-434); RBC 4.12 M/mm3 (3.60-5.2); RDW 15.8 % (11.6-15.6); WHITE BLOOD COUNT 4.1 K/mm3 (4.0-10.0)
[2020-05-18 08:30] LABS: ALBUMIN 3.9 g/dl (3.4-5.0); BILIRUBIN,TOTAL 0.2 mg/dL (0.2-1); BLOOD UREA NITROGEN 29.3 mg/dL (7-18); CALCIUM 8.6 mg/dL (8.5-10.1); CREATININE 0.9 mg/dL (0.55-1.3); POTASSIUM 4.6 mmol/L (3.5-5.1)
[2020-05-18] MEDS ORDERED: SODIUM CHLORIDE 500 ML IV STA (09:05)
--- NOTE | 2020-05-18 10:06 | EKG ---
Test Reason : Blood Pressure : / mmHG Vent. Rate : 096 BPM Atrial Rate : 096 BPM P-R Int : 148 ms QRS Dur : 084 ms QT Int : 354 ms P-R-T Axes : 081 081 074 degrees QTc Int : 447 ms NORMAL SINUS RHYTHM RIGHT ATRIAL ENLARGEMENT BORDERLINE ECG WHEN COMPARED WITH ECG OF 20-APR-2020 05:50, PREMATURE ATRIAL COMPLEXES ARE NO LONGER PRESENT Confirmed by Talon Saldana ([id number]) on 05/18/2020 10:05:55 AM Referred By: YESY WANG Confirmed By:Talon Saldana
[2020-05-18 10:35] VITALS: BP 144/73; PULSE 86
== END 2020-05-18 11:44 | disposition home or self-care (01) ==
LOC: FER 06:00
PROC: 3E0F7GC Introduction of Other Therapeutic Substance into Respiratory Tract, Via Natural or Artificial Opening (ICD-10-PCS; principal; 2020-05-18)
PROC: 3E0F7GC Introduction of Other Therapeutic Substance into Respiratory Tract, Via Natural or Artificial Opening (ICD-10-PCS; 2020-05-18)
PROC: 3E033NZ Introduction of Analgesics, Hypnotics, Sedatives into Peripheral Vein, Percutaneous Approach (ICD-10-PCS; 2020-05-18)
PROC: 3E0337Z Introduction of Electrolytic and Water Balance Substance into Peripheral Vein, Percutaneous Approach (ICD-10-PCS; 2020-05-18)
DX: J44.1 Chronic obstructive pulmonary disease with (acute) exacerbation (principal)
CPT/HCPCS: 36415; 71045-TC-FY; 80053; 82550; 82553; 84484; 85025; 93005; 99285-25